=== PATIENT | male | born 1950 | race Caucasian/White ===

== ENCOUNTER 2021-07-06 08:09 | Outpatient (CLI) | payer MEDICARE, MEDICAID, SELFPAY ==
--- NOTE | 2021-07-06 08:27 | ECG_ITS ---
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 Interpretive Statements NAME OF STUDY: LEXISCAN SESTAMIBI STRESS TEST INDICATION: [Chest Pain, ] Procedure: At the baseline, the blood pressure was 129/75 mmHg with a heart rate of 65 bpm. The electrocardiogram showed normal sinus rhythm, normal axis with T wave inversions in leads V3 through V5 The Lexiscan was infused over a period of 20 seconds. A total of 0.4 mg of Lexiscan was infused. The stress phase was continued for a total of 5 minutes. Heart rate was at the end of stress phase was 75 bpm and a blood pressure of 85/59 mmHg. The EKG at the peak infusion revealed since normal sinus rhythm with no significant ST-T wave changes. Sestamibi was injected 20 seconds after the Lexiscan infusion. Blood pressure at the end of recovery phase was 118/62 mmHg with a heart rate of 67 bpm. Conclusion: 1. Normal EKG response to Lexiscan infusion 2. No Lexiscan induced chest pain or cardiac arrhythmia. 3. Hypertensive blood pressure response and normal heart rate response. 4. Sestamibi/sestamibi perfusion scan pending; see separate report. Electronically Signed On 08-03-2021 10:18:47 CAP MACHINE OPERATOR by Aneudy Goss M.D. [id number]
--- NOTE | 2021-07-06 08:28 | NMCV_ITS ---
NM yunier perf SPECT r/s* [id number] Rikki Gross Age: 70 Gender: M : 1950 Exam Date: 07/06/2021 09:34 Ordering Phys: Sam Jacques MD ([email or web address]) Technologist: SHAHRZAD Sykes Exam Location: [facility] Indications: CHEST PAIN STRESS TEST Please see separate stress test report in [facility] for full findings IMAGE PROTOCOL Rest/Stress 1 Lexiscan Day Radiopharmaceutical Dose (mCi) Administration Site Administered by Rest: Tc-99m 10.9 IV SHAHRZAD Adler Sestamibi Stress:Tc-99m 32.7 IV SHAHRZAD Adler Sestamibi Rest: 06-Jul-2021 60 Discovery 630 Stress: 06-Jul-2021 30 Discovery 630 0.4mg Lexiscan. Images obtained in supine and prone position. SPECT RESULTS Technical Quality: Excellent Raw Data Analysis: Normal Image Corrections: No attenuation or motion correction applied Summed Stress Score: 0 Summed Rest Score: 0 Summed Difference Score: 0 PERFUSION FINDINGS SPECT images demonstrate homogeneous tracer distribution throughout the myocardium. FUNCTIONAL RESULTS (calculated via Gated SPECT) Stress Image LV EF (%): 65 Stress EDV (mL):103 TID: 1 Stress ESV (mL):36 FUNCTIONAL FINDINGS: There is normal left ventricular systolic function. IMPRESSIONS 1. Normal myocardial perfusion imaging with no evidence of ischemia 2. LV systolic function is normal Aneudy Goss MD (Electronically Signed) Final Date: 07 July 2021 16:34 S
[2021-07-06 08:55] VITALS: BMI 29.8
[2021-07-06] MEDS: regadenoson 0.4 Mg/5 ml Syringe IVP (10:06)
[2021-07-06 10:24] VITALS: BP 118/62; PULSE 65
== END 2021-07-06 08:10 | disposition home or self-care (01) ==
LOC: RAD 08:14 → CDL 08:51
PROVIDERS: PCP Family Medicine; Visit Provider Internal Medicine Cardiovascular Disease
DX: R07.9 Chest pain, unspecified (principal)
CPT/HCPCS: 78452; 93017; A9500; J2785

== ENCOUNTER → 2021-10-14 11:50 | Outpatient (BNVA) | payer MEDICARE, MEDICAID, SELFPAY | PROVIDERS: PCP Family Medicine; Visit Provider Family Medicine | DX: J44.9 Chronic obstructive pulmonary disease, unspecified (principal); I10 Essential (primary) hypertension; K21.9 Gastro-esophageal reflux disease without esophagitis; M54.16 Radiculopathy, lumbar region; I25.118 Atherosclerotic heart disease of native coronary artery with other forms of angina pectoris; E78.49 Other hyperlipidemia; M15.9 Polyosteoarthritis, unspecified; F41.1 Generalized anxiety disorder | CPT/HCPCS: 80053; 80061; 85025 ==

== ENCOUNTER → 2021-12-23 13:03 | Outpatient (BNVA) | payer MEDICARE, MEDICAID, SELFPAY | PROVIDERS: PCP Family Medicine; Visit Provider Internal Medicine Pulmonary Disease | DX: J41.0 Simple chronic bronchitis (principal); Z87.891 Personal history of nicotine dependence; I10 Essential (primary) hypertension; K21.9 Gastro-esophageal reflux disease without esophagitis; E78.5 Hyperlipidemia, unspecified | CPT/HCPCS: 99214 ==

== ENCOUNTER → 2021-12-24 08:03 | Outpatient (BNVA) | payer MEDICARE, MEDICAID, SELFPAY | PROVIDERS: PCP Family Medicine; Visit Provider Internal Medicine Pulmonary Disease | DX: Z20.822 Contact with and (suspected) exposure to COVID-19 (principal) | CPT/HCPCS: 87635 ==

== ENCOUNTER 2021-12-29 07:57 | Outpatient (CLI) | payer MEDICARE, MEDICAID, SELFPAY ==
--- NOTE | 2021-12-29 15:04 | PFTS_ITS ---
Date of Study:12/29/21 Date of Dictation: MECHANICS: Forced vital capacity (FVC) is reduced. Forced expiratory volume in one second (FEV1) is reduced. FEV1/FVC is reduced. FLOW VOLUME LOOP: Reduced lateral lung volumes with significant scooping. LUNG VOLUMES: Total lung capacity (TLC) is normal. Residual volume (RV) is increased. DIFFUSING CAPACITY FOR CARBON MONOXIDE: Normal. INTERPRETATION: The postbronchodilator spirometry is consistent with moderate airflow obstruction. There is no significant postbronchodilator response. The lung volumes are consistent with air trapping. Gas exchange (DLCO) is normal. MTDD
== END 2021-12-29 07:58 | disposition home or self-care (01) ==
LOC: RT 08:01
PROVIDERS: PCP Family Medicine; Visit Provider Internal Medicine Pulmonary Disease
DX: J41.0 Simple chronic bronchitis (principal)
CPT/HCPCS: 94060; 94618; 94726; 94729; J7611

== ENCOUNTER 2022-02-09 13:30 | Outpatient (CLI) | payer MEDICARE, MEDICAID, SELFPAY ==
--- NOTE | 2022-02-09 13:48 | CT_ITS ---
WS: [id number] LDCT LUNG CANCER SCREENING HISTORY: lung screening TECHNIQUE: Axial imaging performed from the apices to 1 cm below the costophrenic angles. Coronal and sagittal reformats are submitted with axial MIP series. All CT scans at [facility] use at least one of these dose optimization techniques: automated exposure control; mA and/or kV adjustment per patient size (includes targeted exams where dose is matched to clinical indication); or iterativ e reconstruction. DLP: 81.88 mGy.cm DIvol: Mean CTDIvol: 1.60 (mGy) COMPARISON: None available. Diagnostic quality: Satisfactory Lung Nodules: Hyperexpansion with no pulmonary nodule or mass. No endobronchial lesions. Lungs: Subsegmental area of atelectasis along the RIGHT major fissure within the middle lobe and mild bronchiectasis. Additional subsegmental atelectasis in the lingula. No pneumonia. Heart: Normal size heart. No pericardial effusion. Heavy calcification versus stent in the LEFT anter ior descending coronary artery. Additional calcifications in the circumflex and RIGHT coronary artery . Other findings: Normal size pulmonary artery. Normal size aorta. No adenopathy. No adrenal mass. Mild diffuse thoracic spondylosis. Sclerotic lesion in the posterior LEFT 10th rib is probably a bone isl and. No destructive bone lesion. CT/CT lung screening [id number] IMPRESSION: LUNG-RADS: 2-Benign Appearance or Behavior FOLLOW UP: 12 Month: Continue annual screening with LDCT OTHER FINDINGS (S MODIFIER): None. Subsegmental atelectasis RIGHT middle lobe and lingula.
== END 2022-02-09 13:31 | disposition home or self-care (01) ==
LOC: RAD 13:33
PROVIDERS: PCP Family Medicine; Visit Provider Internal Medicine Pulmonary Disease
DX: Z12.2 Encounter for screening for malignant neoplasm of respiratory organs (principal); J41.0 Simple chronic bronchitis; R06.02 Shortness of breath; T78.40XA Allergy, unspecified, initial encounter; Z87.891 Personal history of nicotine dependence; E78.5 Hyperlipidemia, unspecified; I10 Essential (primary) hypertension; K21.9 Gastro-esophageal reflux disease without esophagitis
CPT/HCPCS: 71271; 82785; 86003; 99214

== ENCOUNTER → 2022-02-15 14:31 | Outpatient (BNVA) | payer MEDICARE, MEDICAID, SELFPAY | PROVIDERS: PCP Family Medicine; Visit Provider Internal Medicine | DX: I25.118 Atherosclerotic heart disease of native coronary artery with other forms of angina pectoris (principal); I10 Essential (primary) hypertension; E78.49 Other hyperlipidemia; Z87.891 Personal history of nicotine dependence | CPT/HCPCS: 99214 ==

== ENCOUNTER 2022-10-19 16:33 | Inpatient (IN) | payer MEDICARE, MEDICAID, SELFPAY ==
[2022-10-19] VITALS (84 sets, daily range): BP systolic 90–162; BP diastolic 57–113; PULSE 0–108; RESP 15–33; TEMP 35.8; O2SAT 94–100
--- NOTE | 2022-10-19 16:36 | ED_ITS ---
HPI - Altered Mental Status General: Chief Complaint: Overdose Stated Complaint: INTUBATED Time Seen by Provider: 10/19/22 16:36 Limitations: altered mental status and other (Intubated) History of Present Illness: Mr. Gross is a 72-year-old gentleman with, per chart review COPD, hypertension, hyperlipidemia, CAD presenting to the emergency department for altered mental status with reported intentional overdose on benzodiazepine. He was found by EMS with altered mental status sitting in a truck, estimated initial GCS of 12. Apparently he admitted to taking an unknown amount of clonazepam and it is unclear how many or what strength as well as any coingestants. He did admit to doing this intentionally as a suicide attempt. Subsequently his mental status declined and he began to vomit at which point EMS intubated the patient and brought him here. Patient intubated with 150 mg ketamine, 5 mg Versed, 10 mg reji and 100 mg succinylcholine. Review of Systems General: Reports: ROS unobtainable due to endotracheal tube and ROS unobtainable due to mental status [facility] PFSH: Medical History CAD (coronary artery disease) COPD (chronic obstructive pulmonary disease) Essential hypertension GERD (gastroesophageal reflux disease) Hyperlipidemia Osteoarthritis Surgical History S/P cataract extraction S/P coronary artery stent placement S/P inguinal hernia repair Family History Other Unknown family medical history Social History Smoking and tobacco status: former smoker Quit status (tobacco): has quit using tobacco Year quit tobacco: 2006 Former quit date comment: 2ppd x 46 years, started age 10 Second hand smoke exposure: Yes Alcohol intake: never Physical Exam Const: GENERAL APPEARANCE: well developed and patient mechanically ventilated HENMT: COMMON NORMALS: normocephalic and atraumatic HEAD & SCALP: normocephalic and atraumatic Eye: COMMON NORMALS: conjunctivae normal CONJUNCTIVA: Yes conjunctivae normal SCLERA: sclerae normal Neck/C-Spine: COMMON NORMALS: supple GENERAL: Yes trachea midline Resp: AUSCULTATION: breath sounds absent on th left OTHER: Initially ET tube 28 at the teeth and left sided breath sounds absent. I suspect right mainstem intubation and ET tube was retracted. Repeat lung sounds present bilaterally with mild coarseness on the left. Chest x-ray to confirm satisfactory positioning of ET tube. Cardio: COMMON NORMALS: regular rate and regular rhythm RATE: regular rate RHYTHM: regular rhythm GI: COMMON NORMALS: Soft to palpation PALPATION: Yes Soft to palpation and No Tenderness to palpation present (GI) PERCUSSION: normal to percussion Extremity: GENERAL: Yes normal exam except as noted and No edema Neuro: COMMON NORMALS: moves all extremities SENSORIUM/ORIENTATION: Yes somnolent OTHER: Patient appears mildly light on sedation and does move all extremities upper and lower. He does not follow commands. Procedures Central Line Placement Right IJ: Time Out Performed: Yes Patient Placed on Monitor/Pulse Ox: Yes MD Prep: mask, gown and gloves Central Line Prep: Povidone-Iodine 1%, Chlorhexidine scrub and sterile dr stephanie applied Ultrasound Used for Placement: Yes Central Line Lumen Inserted: triple Post Procedure: sutured in place, good blood return, all ports aspirated, flushed, capped and sterile dressing applied Post Procedure X-Ray: tip of catheter in good position and no pneumothorax seen Patient Tolerated Procedure: well Complications: none Course Vital Signs: Vital signs: Vital Signs Temperature 98.6 F 10/28/22 20:50 Pulse Rate 69 10/28/22 20:50 Respiratory Rate 17 10/28/22 20:50 Blood Pressure 105/61 10/28/22 20:50 Pulse Oximetry 94 10/28/22 20:50 Oxygen Delivery Me thod 10/28/22 20:50 Oxygen Flow Rate 2 10/25/22 08:00 Fraction of Inspir ed Oxygen 30 10/20/22 18:00 MDM - Altered Mental Status Medical Decision Making 72-year-old male presenting to the emergency department for reported intentional drug overdose. Patient intubated in the field by EMS. EMS reports uncomplicated atraumatic intubation. On initial evaluation of the patient vitals are satisfactory, ET tube is 28 at the teeth and left lung sounds absent. ET tube retracted until breath sounds present bilaterally and resecured. This was confirmed at bedside by x-ray which I personally interpreted at is satisfactory ET tube placement. ABG personally interpreted with repeat planned, RT to titrate down FiO2. I personally interpreted laboratory studies. There is mild leukocytosis which may be reactive, normal hemoglobin and platelet count. Metabolic panel without acute derangement requiring intervention, glucose is adequate. Urinalysis with 3+ blood however only 0-4 cells on microscopy, this may be secondary to Mendez catheter insertion. Toxic ingestions and urine drug screen are negative as tested which does raise additional concern for unknown ingestant. Repeat x-ray also interpreted with satisfactory positioning of NG tube. CT head negative for obvious intracranial hemorrhage or mass as interpreted by me. Confirmed by radiology. During positioning patient did become bradycardic, blood pressure adequate as were other vital sign metrics. I suspect that this is due to increased vagal tone and patient had improvement with atropine. Plan to continue to monitor. X-ray interpreted as satisfactory CVC placement and confirmed by radiology read with no pneumothorax. Case was discussed by RN with poison control based on reported ingestant. Family not in the waiting room at time of attempted discussion. Patient requires inpatient management for intentional drug overdose, acute respiratory failure, altered mental status. Discussed with hospitalist service who was agreeable to admit patient to the ICU. A broad range of differentials were considered in this case and ED evaluation tailored to likely and clinically significant etiologies as appropriate. Medical complexity is increased by patient's significant pertinent comorbidities including CAD, COPD. I reviewed prior cardiology and pulmonology as well as family practice most recent visit notes. I reviewed greater than 3 recent laboratory study results and the prior CT lung results and myocardial perfusion scan results. Medical Records I reviewed the patient's medical records. Lab Data I reviewed the patient's lab results. 10/19/22 17:30 10/19/22 17:[address] 10/19/22 16:38 IMPRESSION: 1. No acute intracranial abnormality. 2. 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 Chest X-Ray 10/21/22 09:53 IMPRESSION: 1. Mild cardiac enlargement. No acute process noted. 2. Right-sided IJ catheter in satisfactory position. 3. No acute infiltrate or other significant finding. Laboratory Results WBC 13.9 10^3/uL (4.0-10.0) H 10/19/22 17:30 RBC 4.52 10^6/uL (4.1-5.3) 10/19/22 17:30 Hgb 13.0 g/dL (11.7-16.6) 10/19/22 17:30 Hct 42.2 % (42.0-52.0) 10/19/22 17:30 MCV 93.4 fl (80-94) 10/19/22 17:30 MCH 28.8 pg (28.0-34.0) 10/19/22 17:30 MCHC 30.8 g/dL (30.0-36.0) 10/19/22 17: RDW 14.4 % (12.1-15.1) 10/19/22 17:30 Plt Count 227 10^3/cmm (130-400) 10/19/22 17:30 MPV 11.4 fL (7.4-10.4) H 10/19/22 17:30 Neut % (Auto) 89.1 % 10/19/22 17:30 Lymph % (Auto) 4.2 % 10/19/22 17:30 [place] % (Auto) 5.3 % 10/19/22 17:30 Eos % (Auto) 0.6 % 10/19/22 17:30 Baso % (Auto) 0.3 % 10/19/22 17:30 Neut # (Auto) 12.38 10^3/uL (1.8-7.7) H 10/19/22 17:30 Lymph # (Auto) 0.6 10^3/uL (0.8-4.8) L 10/19/22 17:30 [place] # (Auto) 0.7 10^3/uL (0.2-0.9) 10/19/22 17:30 Eos # (Auto) 0.1 10^3/uL (0.0-0.8) 10/19/22 17:30 Baso # (Auto) 0.0 10^3/uL (0.0-0.1) 10/19/22 17: Nucleated RBC % (auto) 0 % 10/19/22 17: Nucleated RBCs # 0.0 /100WBC 10/19/22 17:30 Specimen Type Arterial 10/19/22 20:00 Sample Site Brachial, left 10/19/22 20:00 ABG pH 7.37 (7.35-7.45) 10/19/22 20:00 ABG pCO2 37.6 mmHg (35-45) 10/19/22 20:00 ABG pO2 110.0 mmHg (80.0-100.0) H 10/19/22 20:00 ABG HCO3 21.5 mmol/L (22-26) L 10/19/22 20:00 ABG Base Excess -3.5 mmol/L (-2.0-2.0) L 10/19/22 20:00 [place] Test N/a 10/19/22 20:00 Hematocrit 37.4 % (42-52) L 10/19/22 20:00 O2 Delivery Device Vent 10/19/22 20:00 FiO2 100.0 % 10/19/22 17:39 Tidal Volume 0.45 10/19/22 17:39 PEEP 5.0 cmH20 10/19/22 17:[address] Supervisor ID Ivis 10/19/22 20:00 Sodium 141 mmol/L (136-145) 10/19/22 17:30 Potassium 3.9 mmol/L (3.5-5.1) 10/19/22 17:30 Chloride 107 mmol/L (98-107) 10/19/22 17:30 Carbon Dioxide 25 mmol/L (22-29) 10/19/22 17:30 Anion Gap 12.9 (5-19) 10/19/22 17:30 BUN 24 mg/dL (8-23) H 10/19/22 17:30 Creatinine 1.1 mg/dL (0.7-1.2) 10/19/22 17:30 GFR Calculation 66.2 mL/min (90-130) L 10/19/22 17:30 Glucose 108 mg/dL (65-115) 10/19/22 17:30 POC Glucose 119 mg/dL (70-110) H 10/19/22 18:50 Calculated Osmolality 297 mOsm/kg (285-295) H 10/19/22 17:30 Calcium 9.0 mg/dL (8.5-10.5) 10/19/22 17:30 Magnesium 2.0 mg/dL (1.7-2.3) 10/19/22 17:30 Total Bilirubin 0.4 mg/dL (0.15-1.2) 10/19/22 17:30 AST 21 U/L (0-40) 10/19/22 17:30 ALT 28 U/L (0-41) 10/19/22 17:30 Alkaline Phosphatase 51 U/L (40-130) 10/19/22 17:30 Troponin T Baseline 12 ng/L (0-15) 10/19/22 17:30 Troponin T 120 Minute 11.16 ng/L (0-15) 10/19/22 19:25 Delta Troponin T -0.84 ABS# (0-10) L 10/19/22 19:25 NT-Pro-B Natriuret Pep 272 pg/mL (0-125) H 10/19/22 17:30 Total Protein 6.6 g/dL (6.6-8.7) 10/19/22 17:30 Albumin 3.9 g/dL (3.5-5.2) 10/19/22 17:30 Globulin 2.7 g/dL (1.3-4.6) 10/19/22 17:30 TSH 0.88 uIU/mL (0.27-4.20) 10/19/22 17:30 Urine Color Yellow (Yellow) 10/19/22 18:16 Urine Appearance Clear (CLEAR) 10/19/22 18:16 Urine pH 6 (5-7) 10/19/22 18:16 Ur Specific [place] 1.020 (1.005-1.030) 10/19/22 18:16 Urine Protein Neg (Negative) 10/19/22 18:16 Urine Glucose (UA) Norm (Normal) 10/19/22 18:16 Urine Ketones Negative (Negative) 10/19/22 18:16 Urine Blood 3+ (Negative) H 10/19/22 18:16 Urine Nitrate Negative (Negative) 10/19/22 18:16 Urine Bilirubin Neg (Negative) 10/19/22 18:16 Urine Urobilinogen Norm mg/dL (Negative) 10/19/22 18:16 Ur Leukocyte Esterase Negative (Negative) 10/19/22 18:16 Urine RBC 0-4 /hpf (0-2) H 10/19/22 18:16 Urine WBC 0-4 /hpf (0-5) H 10/19/22 18:16 Ur Squamous Epith Cells 0-4 /hpf (0-5) H 10/19/22 18:16 Amorphous Sediment Not Reportable 10/19/22 18:16 Urine Bacteria Trace /hpf (NONE) 10/19/22 18:16 Urine Mucus Trace /hpf 10/19/22 18:16 Salicylates < 0.3 mg/dL (3-10) L 10/19/22 17:30 Urine Opiates Screen Negative ng/mL (Negative) 10/19/22 18:16 Acetaminophen < 5.0 ug/mL (10-30) L 10/19/22 17:30 Ur Barbiturates Screen Negative ng/mL (Negative) 10/19/22 18:16 Ur Phencyclidine Scrn Negative ng/mL (Negative) 10/19/22 18:16 Ur Amphetamines Screen Negative ng/mL (Negative) 10/19/22 18:16 U Benzodiazepines Scrn Negative ng/mL (Negative) 10/19/22 18:16 Urine Cocaine Screen Negative ng/mL (Negative) 10/19/22 18:16 U Marijuana (THC) Screen Negative ng/mL (Negative) 10/19/22 18:16 Ethyl Alcohol < 10 mg/dL (0-10) 10/19/22 17:30 Critical Care Time Critical Care Time: Critical Care Time: Yes Total Critical Care Time: 85 Attestation: Due to a high probability of clinically significant, possibly life threatening deterioration, the patient required my highest level of attention and preparedness to intervene emergently and I personally spent this critical care time directly and personally managing the patient. This critical care time included obtaining a history; examining the patient; pulse oximetry; ordering and review of laboratory and imaging studies; arranging urgent treatment with development of a management plan; evaluation of patient's response to treatment; frequent reassessment; and, discussions with other providers as applicable. It was exclusive of separately billable procedures. Primary systems involved are CHILD ADOLESCENT PSYCHIATRIST, respiratory, toxicology. Discharge Plan Discharge Patient Disposition: Admitted As Inpatient Admit Provider: Cassie Huynh Clinical Impression: Suicide attempt by benzodiazepine overdose, Acute alteration in mental status, Acute respiratory failure Condition: Stable Coding Level of Care Code ED Embryology Teacher for Alejag Fwd Exam Comprehensive
--- NOTE | 2022-10-19 16:36 | XRR_ITS ---
PROCEDURE INFORMATION: Exam: XR Chest Exam date and time: 10/19/2022 4:43 PM Age: 72 years old Clinical indication: Device placement; Ett placement (vent status); Additional info: Intubated TECHNIQUE: Imaging protocol: Radiologic exam of the chest. Views: 1 view. COMPARISON: CT lung screening [id number] 02/09/2022 1:52 PM FINDINGS: Tubes, catheters and devices: Intubation with tip 5.3 cm above the lisa. Lungs: Patchy airspace opacities in the left lung base. Mild discoid atelectasis in the right lung base. Pleural spaces: Unremarkable. No pleural effusion. No pneumothorax. Heart/Mediastinum: Unremarkable. No cardiomegaly. Diaphragm: Chronic elevation of the left diaphragm. Bones/joints: Unremarkable. XR/XR chest 1V portable [id number] IMPRESSION: Atelectasis versus pneumonia in the left lung base.
--- NOTE | 2022-10-19 16:38 | CTR_ITS ---
PROCEDURE INFORMATION: Exam: CT Head Without Contrast Exam date and time: 10/19/2022 6:00 PM Age: 72 years old Clinical indication: Coma or unconsciousness; Additional info: AMS, found down at home. Unresponsive TECHNIQUE: Imaging protocol: Computed tomography of the head without contrast. Radiation optimization: All CT scans at this facility use at least one of these dose optimization techniques: automated exposure control; mA and/or kV adjustment per patient size (includes targeted exams where dose is matched to clinical indication); or iterative reconstruction. Other protocol: This patient has received [address] and 0 known cardiac nuclear medicine studies in the 12 months prior to the current study. COMPARISON: No relevant prior studies available. RADIATION DOSE METRICS: Total DLP (mGy-cm): 1152.08 FINDINGS: Brain: Moderate diffuse cortical volume loss. Multiple chronic lacunar infarcts in the right lentiform nucleus, galaviz radiata, and right caudate body. Mild hypodensities in supratentorial periventricular and subcortical white matter, consistent with microangiopathy. No intracranial hemorrhage. Cerebral ventricles: No ventriculomegaly. Paranasal sinuses: Small polyp or retention cyst in the right sphenoid sinus. The other sinuses are clear. Mastoid air cells: Visualized mastoid air cells are well aerated. Orbital cavities: Prior cataract surgery. Bones/joints: Unremarkable. No acute fracture. Soft tissues: Unremarkable. Vasculature: No hyperdense artery. CT/CT head wo con* [id number] IMPRESSION: 1. No acute intracranial abnormality. 2. 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
--- NOTE | 2022-10-19 16:43 | PC.NURSE ---
This nurse spoke with poison control.
--- NOTE | 2022-10-19 16:45 | ECG_ITS ---
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 Measurements Intervals [place] Rate: 62 P: 38 [place]: 132 QRS: 34 QRSD: 113 T: 46 QT: 399 QTc: 408 Interpretive Statements SINUS RHYTHM MODERATE INTRAVENTRICULAR CONDUCTION DELAY [110+ ms QRS DURATION] Compared to ECG 10/14/2016 06:32:09 Intraventricular conduction delay now present T-wave abnormality no longer present Possible ischemia no longer present Electronically Signed On 10-20-2022 9:27:39 RN PRODUCTION by Aneudy Goss M.D. [id number]
[2022-10-19] MEDS: propofol 1,000 MG/100 ML INJ 12 MG IV (16:50)
--- NOTE | 2022-10-19 17:19 | XRR_ITS ---
PROCEDURE INFORMATION: Exam: XR Chest Exam date and time: 10/19/2022 5:34 PM Age: 72 years old Clinical indication: Device placement; Ng tube; Patient HX: Ng placement TECHNIQUE: Imaging protocol: Radiologic exam of the chest. Views: 1 view. COMPARISON: CR XR chest 1V portable [id number] 10/19/2022 4:43 PM FINDINGS: Tubes, catheters and devices: Intubation with tip approximately 5.3 cm above the lisa. Gastric tube tip in the mid stomach. Lungs: Stable patchy airspace opacities in the left lung base. Improved mild atelectasis in the right lung base. Pleural spaces: Unremarkable. No pleural effusion. No pneumothorax. Heart/Mediastinum: Unremarkable. No cardiomegaly. Diaphragm: Stable elevation of the left diaphragm. Bones/joints: Unremarkable. XR/XR chest 1V portable [id number] IMPRESSION: 1. Gastric tube tip in the mid stomach. 2. Stable atelectasis or pneumonia in the left lung base.
[2022-10-19] MEDS: sodium chloride 0.9% 1,000 ML 999 ML IV (17:24)
[2022-10-19 17:40] LABS: Basophils % 0.3 %; Eosinophils # 0.1 10^3/uL (0.0-0.8); Eosinophils % 0.6 %; Hematocrit 42.2 % (42.0-52.0); Lymphocytes # 0.6 10^3/uL (0.8-4.8); Lymphocytes % 4.2 %; Mean Corpuscular HGB Conc 30.8 g/dL (30.0-36.0); Mean Corpuscular Hemoglobin 28.8 pg (28.0-34.0); Mean Corpuscular Volume 93.4 fl (80-94); Mean Platelet Volume 11.4 fL (7.4-10.4); Monocytes # 0.7 10^3/uL (0.2-0.9); Monocytes % 5.3 %; Neutrophils # 12.38 10^3/uL (1.8-7.7); Neutrophils % 89.1 %; Nucleated Red Blood Cells % 0 %; Platelet Count 227 10^3/cmm (130-400); Red Blood Count 4.52 10^6/uL (4.1-5.3); Red Cell Distribution Width 14.4 % (12.1-15.1); White Blood Count 13.9 10^3/uL (4.0-10.0)
[2022-10-19 17:51] LABS: ABG PCO2 41.3 mmHg (35-45); ABG PH Result 7.34 (7.35-7.45); Arterial Blood Gas Hematocrit 37.7 % (42-52); Base Excess ABG -3.7 mmol/L (-2.0-2.0); Blood Gas Allen Test Pos; Blood Gas Sample Type Arterial
[2022-10-19 17:52] LABS: Blood Gas Operator Identificat MONRO; Blood Gas Sample Site Radial, left; Blood Gas Tidal Volume 0.45; Oxygen Device VENT
[2022-10-19 18:12] LABS: Troponin(5th) Baseline 12 ng/L (0-15)
[2022-10-19 18:22] LABS: Acetaminophen < 5.0 ug/mL (10-30); Alanine Aminotransferase 28 U/L (0-41); Albumin Level 3.9 g/dL (3.5-5.2); Alcohol Level < 10 mg/dL (0-10); Alkaline Phosphatase 51 U/L (40-130); Aspartate Amino Transferase 21 U/L (0-40); Blood Urea Nitrogen 24 mg/dL (8-23); Carbon Dioxide 25 mmol/L (22-29); Chloride 107 mmol/L (98-107); Globulin 2.7 g/dL (1.3-4.6); Glomerular Filtration Rate 66.2 mL/min (90-130); Glucose 108 mg/dL (65-115); NT Pro B Type Natriuretic Pept 272 pg/mL (0-125); Osmolality Calculated 297 mOsm/kg (285-295); Salicylate < 0.3 mg/dL (3-10); Sodium 141 mmol/L (136-145); Thyroid Stimulating Hormone 0.88 uIU/mL (0.27-4.20); Total Bilirubin 0.4 mg/dL (0.15-1.2); Total Protein 6.6 g/dL (6.6-8.7)
--- NOTE | 2022-10-19 18:22 | PC.NURSE ---
One syringe of atropine sulfate 1mg/10mL was pulled by KIRK and witness by this nurse. Atropine admin by KIRK.
[2022-10-19] MEDS: atropine 0.1 mg/mL Syr 10 mL 1 MG (18:24)
[2022-10-19 18:31] LABS: Anion Gap 12.9 (5-19); Potassium 3.9 mmol/L (3.5-5.1)
[2022-10-19 18:36] LABS: Add Urine Microscopic? YES; Bilirubin Urine Neg (Negative); Blood Urine 3+ (Negative); Glucose Urine UA Norm (Normal); Ketones Urine Negative (Negative); Leukocyte Esterase Urine Negative (Negative); Nitrate Urine Negative (Negative); Protein Urine Neg (Negative); Urine Appearance Clear (CLEAR); Urine Color Yellow (Yellow); Urobilinogen Urine Norm (Negative); pH Urine 6 (5-7)
--- NOTE | 2022-10-19 18:38 | ECG_ITS ---
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 Measurements Intervals [place] Rate: 69 P: 35 [place]: 133 QRS: 28 QRSD: 94 T: 29 QT: 387 QTc: 415 Interpretive Statements SINUS RHYTHM NONSPECIFIC T-WAVE ABNORMALITY Compared to ECG 10/19/2022 16:45:59 T-wave abnormality now present Intraventricular conduction delay no longer present Electronically Signed On 10-20-2022 9:30:52 MATERIAL CHASER by Aneudy Goss M.D. [id number]
[2022-10-19 18:42] LABS: Bacteria Urine TRACE /hpf; Mucus Urine TRACE /hpf; RBC Urine 0-4 /hpf (0-2); Squamous Epithelial Cell Urine 0-4 /hpf (0-5); WBC Urine 0-4 /hpf (0-5)
--- NOTE | 2022-10-19 18:42 | XRR_ITS ---
PROCEDURE INFORMATION: Exam: XR Chest Exam date and time: 10/19/2022 6:53 PM Age: 72 years old Clinical indication: Device placement; Other: Central line placement; Prior surgery TECHNIQUE: Imaging protocol: Radiologic exam of the chest. Views: 1 view. COMPARISON: CR (CHEST, ) 10/19/2022 5:34 PM FINDINGS: Tubes, catheters and devices: Right IJ central line with tip over the distal SVC. Intubation with tip 5.5 cm above the lisa. Gastric tube placement with tip in the inferior mid stomach. Lungs: Stable airspace opacities in the left lung base. Pleural spaces: Unremarkable. No pleural effusion. No pneumothorax. Heart/Mediastinum: Unremarkable. No cardiomegaly. Diaphragm: Elevation of the left diaphragm is unchanged. Bones/joints: Unremarkable. XR/XR chest 1V portable [id number] IMPRESSION: 1. Central line placement without pneumothorax. 2. Otherwise stable chest.
--- NOTE | 2022-10-19 18:42 | PC.NURSE ---
Chelsea from poison control called for update
[2022-10-19 18:43] LABS: Add Urine Culture? No
[2022-10-19] MEDS: fentaNYL 50 mcg/mL INJ 2mL IVP (18:45)
[2022-10-19] MEDS: atropine 0.1 mg/mL Syr 10 mL 1 MG IVP (18:46)
[2022-10-19 18:48] LABS: Amphetamines Screen Urine Negative (Negative); Barbiturates Screen Urine Negative (Negative); Benzodiazepines Screen Urine Negative (Negative); Cocaine Screen Urine Negative (Negative); Opiate Screen Urine Negative (Negative); PCP Screen Urine Negative (Negative); THC Screen Urine Negative (Negative)
[2022-10-19 18:53] LABS: Glucose Point of Care 119 mg/dL (70-110)
[2022-10-19 19:52] LABS: Troponin 5 2HR 11.16 ng/L (0-15)
[2022-10-19 19:53] LABS: Troponin 5 2HR Delta -0.84 ABS# (0-10)
[2022-10-19 20:14] LABS: ABG PCO2 37.6 mmHg (35-45); ABG PH Result 7.37 (7.35-7.45); Arterial Blood Gas Hematocrit 37.4 % (42-52); Base Excess ABG -3.5 mmol/L (-2.0-2.0); Blood Gas Sample Site Brachial, left; Blood Gas Sample Type Arterial; HCO3 ABG 21.5 mmol/L (22-26); Oxygen Device VENT
--- NOTE | 2022-10-19 20:43 | XRR_ITS ---
PROCEDURE INFORMATION: Exam: XR Chest Exam date and time: 10/19/2022 9:43 PM Age: 72 years old Clinical indication: Device placement; Patient HX: Et, og, central line placement after transfer to icu; Additional info: Et tube confirmation and og placement confirmation TECHNIQUE: Imaging protocol: Radiologic exam of the chest. Views: 1 view. COMPARISON: CR (CHEST, ) 10/19/2022 6:53 PM FINDINGS: Tubes, catheters and devices: Intubation with tip 2.9 cm above the lisa. A gastric tube extends into the stomach, tip beyond the field of view. Lungs: Stable airspace opacities in the left lung base. Minimal atelectasis in the right lung base. Pleural spaces: Unremarkable. No pleural effusion. No pneumothorax. Heart/Mediastinum: Unremarkable. No cardiomegaly. Diaphragm: Stable elevation of the left diaphragm. Bones/joints: Unremarkable. XR/XR chest 1V portable [id number] IMPRESSION: 1. Intubation with tip 2.9 cm above the lisa. 2. Otherwise stable chest.
[2022-10-19 20:47] LABS: Glucose Point of Care 90 mg/dL (70-110)
--- NOTE | 2022-10-19 22:38 | ECG_ITS ---
[facility] Test Date: 2022-10-19 Pat Name: Rikki Gross Department: Room: [facility] Gender: Male Ophthalmic Surgical Assistant: : 1950 Requested By: Elias Sen Order Number: [id number] Leighton MD: Aneudy Goss M.D. Measurements Intervals [place] Rate: 67 P: 39 MD: 142 QRS: 37 QRSD: 93 T: 29 QT: 393 QTc: 415 Interpretive Statements SINUS RHYTHM NONSPECIFIC T-WAVE ABNORMALITY Compared to ECG 10/19/2022 19:08:25 No significant changes Electronically Signed On 10-20-2022 9:30:21 [employer] COMPENSATION ADMINISTRATOR by Aneudy Goss M.D. [id number]
[2022-10-19] MEDS: piperacillin-tazobactam 3.375 GM in sodium chloride 0.9% (plus) 50 ML IV (23:06)
[2022-10-19] MEDS: enoxaparin 40 mg/0.4 mL Syringe SUBCUT (23:06)
[2022-10-19] MEDS: dextrose 5%-sod chloride 0.9% 1,000 ML 75 ML IV (23:06)
--- NOTE | 2022-10-19 23:13 | PM.HP ---
Providers/Chief Complaint Admitting Physician: Cassie Huynh MD Chief Complaint: INTUBATED History of Present Illness History is obtained by reviewing chart and talking to ER physician. Patient is currently intubated sedated therefore unable to participate. Rikki Gross is a 72 year old male with history of COPD, hyperlipidemia, CAD who was brought by the EMS today after reportedly being found in his truck reportedly having consumed multiple Klonopin tablets in a suicide attempt. Initial GCS when he was evaluated by EMS was at 12, then during assessment declined with regards to his mentation and started vomiting. Due to concern for airway compromise, he was intubated by EMS and brought into the emergency room. No other details are currently available. Lab abnormalities include mild leukocytosis at 13.9, chest x-ray with a left lower lobe infiltrate, troponin series without any significant delta. Review of Systems General: Reports: ROS unobtainable due to medical condition and ROS unobtainable due to mental status Medications/Allergies Home Medications Medication Instructions Recorded Confirmed Last Taken Type aspirin 81 mg tablet,delayed 81 mg PO DAILY 05/25/21 07/14/22 Unknown History release (Adult Low Dose Aspirin) docusate sodium 100 mg capsule 100 mg PO DAILY 07/30/21 07/14/22 Unknown History vitamin B complex (B 1 tab PO DAILY 07/30/21 07/14/22 Unknown History Complex-Vitamin B12 tablet) albuterol sulfate 90 mcg/actuation 2 puff inhalation Q6H PRN 10/14/21 07/14/22 Unknown Rx aerosol inhaler (ProAir HFA) shortness of breath or wheezing #8.5 grams carvedilol 12.5 mg tablet 12.5 mg PO BID #180 tabs 10/21/21 07/14/22 Unknown Rx diphenhydramine HCl 25 mg tablet 25 mg PO TID PRN 10/21/21 07/14/22 Unknown History (Allergy Relief (diphenhydramine)) ibuprofen 200 mg tablet 200 mg PO Q6H PRN 10/21/21 07/14/22 Unknown History isosorbide mononitrate 30 mg 30 mg PO DAILY #90 tabs 10/21/21 07/14/22 Unknown Rx tablet,extended release 24 hr rosuvastatin 40 mg tablet 40 mg PO DAILY #90 tabs 10/21/21 07/14/22 Unknown Rx valsartan 160 mg tablet 160 mg PO DAILY #90 tabs 10/21/21 07/14/22 Unknown Rx fluticasone 500 mcg-salmeterol 50 1 inh inhalation BID #60 ea 12/23/21 07/14/22 Unknown Rx mcg/dose blistr powdr for inhalation (Advair Diskus) albuterol sulfate 2.5 mg/3 mL 2.5 mg (3 mL) inhalation Q4H PRN 01/13/22 07/14/22 Unknown Rx (0.083 %) solution for nebulization shortness of breath or wheezing #180 mL amoxicillin 875 mg-potassium 1 tab PO Q12H 10 days #20 tabs 01/13/22 07/14/22 Unknown Rx clavulanate 125 mg tablet meloxicam 15 mg tablet 15 mg PO DAILY 90 days #90 tabs 01/13/22 07/14/22 Unknown Rx omeprazole 20 mg tablet,delayed 20 mg PO DAILY 90 days #90 tabs 01/13/22 07/14/22 Unknown Rx release gabapentin 300 mg capsule 300 mg PO TID 30 days #90 caps 01/20/22 07/14/22 Unknown Rx nitroglycerin 0.4 mg sublingual 0.4 mg sublingual Q5M PRN chest 02/02/22 07/14/22 Unknown Rx tablet pain #30 tabs budesonide 160 mcg-glycopyr 9 2 inh inhalation BID #10.7 grams 02/15/22 07/14/22 Unknown Rx mcg-formot 4.8 mcg/actuation HFA inhaler (Breztri Aerosphere) cranberry 400 mg capsule 400 mg PO DAILY 02/15/22 07/14/22 Unknown History montelukast 10 mg tablet 10 mg PO DAILY #30 tabs 02/15/22 07/14/22 Unknown Rx (Singulair) umeclidinium 62.5 mcg/actuation 1 inh inhalation DAILY #30 ea 04/20/22 07/14/22 Unknown Rx blister powder for inhalation (Incruse Ellipta) amlodipine 5 mg tablet 10 mg PO QAM #90 tabs 06/23/22 07/14/22 Unknown Rx ticagrelor 90 mg tablet (Brilinta) 90 mg PO BID #180 tabs 10/18/22 Unknown Rx Allergies Allergy/AdvReac Type Severity Reaction Status Date / Time No Known Allergies Allergy Verified 07/14/22 07:03 PFSH Acute PFSH: Medical History CAD (coronary artery disease) COPD (chronic obstructive pulmonary disease) Essential hypertension GERD (gastroesophageal reflux disease) Hyperlipidemia Osteoarthritis Surgical History S/P cataract extraction S/P coronary artery stent placement S/P inguinal hernia repair Family History Other Unknown family medical history Social History Smoking and tobacco status: former smoker Quit status (tobacco): has quit using tobacco Year quit tobacco: 2006 Former quit date comment: 2ppd x 46 years, started age 10 Second hand smoke exposure: Yes Alcohol intake: never Vitals/I&O/Wt Last Vital Signs Temp 96.4 F L 10/19/22 20:15 Pulse 66 10/19/22 22:30 Resp 16 10/19/22 23:10 BP 92/59 10/19/22 22:30 Pulse Ox 97 10/19/22 23:10 O2 Del Method 10/19/22 20:36 FiO2 30 10/19/22 23:10 10/19/22 10/19/22 10/20/22 14:59 22:59 06:59 Intake Total 1004 / 1004 Balance 1004 / 1004 Weight last 48 hrs Weight 83.971 kg Physical Exam Narrative: General: Intubated sedated HEENT: PERRLA, pupils bilaterally equal and reactive Chest: Normal vesicular breath sounds, no added sounds, equal good air entry bilaterally CVS: S1-S2 regular, no murmurs, no tachycardia, no gallops, no rubs Abdomen: Soft, nontender, no organomegaly, bowel sounds present Neuro: Unable to assess is currently intubated sedated Urinary Catheter Management: Mendez: Cath Placed During This Visit: yes Reason for Continuing Indwelling Catheter: Accurate Measurement of Urinary Output in Critically Ill Patients Urinary Catheter Date of Insertion: 10/19/22 Urinary Catheter Time of Insertion: 17:15 Data 10/19/22 17:30 10/19/22 17:30 Other Labs: Radiology Impressions Head CT 10/19/22 16:38 IMPRESSION: 1. No acute intracranial abnormality. 2. 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 Chest X-Ray 10/19/22 20:43 IMPRESSION: 1. Intubation with tip 2.9 cm above the lisa. 2. Otherwise stable chest. Laboratory Results WBC 13.9 10^3/uL (4.0-10.0) H 10/19/22 17:30 RBC 4.52 10^6/uL (4.1-5.3) 10/19/22 17:30 Hgb 13.0 g/dL (11.7-16.6) 10/19/22 17:30 Hct 42.2 % (42.0-52.0) 10/19/22 17:30 MCV 93.4 fl (80-94) 10/19/22 17:30 MCH 28.8 pg (28.0-34.0) 10/19/22 17:30 MCHC 30.8 g/dL (30.0-36.0) 10/19/22 17:30 RDW 14.4 % (12.1-15.1) 10/19/22 17:30 Plt Count 227 10^3/cmm (130-400) 10/19/22 17:30 MPV 11.4 fL (7.4-10.4) H 10/19/22 17:30 Neut % (Auto) 89.1 % 10/19/22 17:30 Lymph % (Auto) 4.2 % 10/19/22 17:30 [place] % (Auto) 5.3 % 10/19/22 17:30 Eos % (Auto) 0.6 % 10/19/22 17:30 Baso % (Auto) 0.3 % 10/19/22 17:30 Neut # (Auto) 12.38 10^3/uL (1.8-7.7) H 10/19/22 17:30 Lymph # (Auto) 0.6 10^3/uL (0.8-4.8) L 10/19/22 17:30 [place] # (Auto) 0.7 10^3/uL (0.2-0.9) 10/19/22 17:30 Eos # (Auto) 0.1 10^3/uL (0.0-0.8) 10/19/22 17:30 Baso # (Auto) 0.0 10^3/uL (0.0-0.1) 10/19/22 17:30 Nucleated RBC % (auto) 0 % 10/19/22 17:30 Nucleated RBCs # 0.0 /100WBC 10/19/22 17:30 Specimen Type Arterial 10/19/22 20:00 Sample Site Brachial, left 10/19/22 20:00 ABG pH 7.37 (7.35-7.45) 10/19/22 20:00 ABG pCO2 37.6 mmHg (35-45) 10/19/22 20:00 ABG pO2 110.0 mmHg (80.0-100.0) H 10/19/22 20:00 ABG HCO3 21.5 mmol/L (22-26) L 10/19/22 20:00 ABG Base Excess -3.5 mmol/L (-2.0-2.0) L 10/19/22 20:00 [place] Test N/a 10/19/22 20:00 Hematocrit 37.4 % (42-52) L 10/19/22 20:00 O2 Delivery Device Vent 10/19/22 20:00 FiO2 100.0 % 10/19/22 17:39 Tidal Volume 0.45 10/19/22 17:39 PEEP 5.0 cmH20 10/19/22 17:39 Stage Producer ID Ivis 10/19/22 20:00 Sodium 141 mmol/L (136-145) 10/19/22 17:30 Potassium 3.9 mmol/L (3.5-5.1) 10/19/22 17:30 Chloride 107 mmol/L (98-107) 10/19/22 17:30 Carbon Dioxide 25 mmol/L (22-29) 10/19/22 17:30 Anion Gap 12.9 (5-19) 10/19/22 17:30 BUN 24 mg/dL (8-23) H 10/19/22 17:30 Creatinine 1.1 mg/dL (0.7-1.2) 10/19/22 17:30 GFR Calculation 66.2 mL/min (90-130) L 10/19/22 17:30 Glucose 108 mg/dL (65-115) 10/19/22 17:30 POC Glucose 90 mg/dL (70-110) 10/19/22 20:41 Calculated Osmolality 297 mOsm/kg (285-295) H 10/19/22 17:30 Calcium 9.0 mg/dL (8.5-10.5) 10/19/22 17:30 Magnesium 2.0 mg/dL (1.7-2.3) 10/19/22 17:30 Total Bilirubin 0.4 mg/dL (0.15-1.2) 10/19/22 17:30 AST 21 U/L (0-40) 10/19/22 17:30 ALT 28 U/L (0-41) 10/19/22 17:30 Alkaline Phosphatase 51 U/L (40-130) 10/19/22 17:30 Troponin T Baseline 12 ng/L (0-15) 10/19/22 17:30 Troponin T 120 Minute 11.16 ng/L (0-15) 10/19/22 19:25 Delta Troponin T -0.84 ABS# (0-10) L 10/19/22 19:25 NT-Pro-B Natriuret Pep 272 pg/mL (0-125) H 10/19/22 17:30 Total Protein 6.6 g/dL (6.6-8.7) 10/19/22 17:30 Albumin 3.9 g/dL (3.5-5.2) 10/19/22 17:30 Globulin 2.7 g/dL (1.3-4.6) 10/19/22 17:30 TSH 0.88 uIU/mL (0.27-4.20) 10/19/22 17:30 Urine Color Yellow (Yellow) 10/19/22 18:16 Urine Appearance Clear (CLEAR) 10/19/22 18:16 Urine pH 6 (5-7) 10/19/22 18:16 Ur Specific [place] 1.020 (1.005-1.030) 10/19/22 18:16 Urine Protein Neg (Negative) 10/19/22 18:16 Urine Glucose (UA) Norm (Normal) 10/19/22 18:16 Urine Ketones Negative (Negative) 10/19/22 18:16 Urine Blood 3+ (Negative) H 10/19/22 18:16 Urine Nitrate Negative (Negative) 10/19/22 18:16 Urine Bilirubin Neg (Negative) 10/19/22 18:16 Urine Urobilinogen Norm mg/dL (Negative) 10/19/22 18:16 Ur Leukocyte Esterase Negative (Negative) 10/19/22 18:16 Urine RBC 0-4 /hpf (0-2) H 10/19/22 18:16 Urine WBC 0-4 /hpf (0-5) H 10/19/22 18:16 Ur Squamous Epith Cells 0-4 /hpf (0-5) H 10/19/22 18:16 Amorphous Sediment Not Reportable 10/19/22 18:16 Urine Bacteria Trace /hpf (NONE) 10/19/22 18:16 Urine Mucus Trace /hpf 10/19/22 18:16 Salicylates < 0.3 mg/dL (3-10) L 10/19/22 17:30 Urine Opiates Screen Negative ng/mL (Negative) 10/19/22 18:16 Acetaminophen < 5.0 ug/mL (10-30) L 10/19/22 17:30 Ur Barbiturates Screen Negative ng/mL (Negative) 10/19/22 18:16 Ur Phencyclidine Scrn Negative ng/mL (Negative) 10/19/22 18:16 Ur Amphetamines Screen Negative ng/mL (Negative) 10/19/22 18:16 U Benzodiazepines Scrn Negative ng/mL (Negative) 10/19/22 18:16 Urine Cocaine Screen Negative ng/mL (Negative) 10/19/22 18:16 U Marijuana (THC) Screen Negative ng/mL (Negative) 10/19/22 18:16 Ethyl Alcohol < 10 mg/dL (0-10) 10/19/22 17:30 Micro: Microbiology 10/19/22 19:00 Blood Culture - Preliminary Blood SPECIMEN COLLECTED 10/19/22 17:44 Blood Culture - Preliminary Blood SPECIMEN COLLECTED A&P Assessment and plan (1) Acute alteration in mental status: Patient brought to the emergency room, intubated after an aberrant suicide attempt by benzodiazepine overdose following which he became somnolent, started to vomit and due to concern for airway compromise was intubated in the field. He remains intubated and sedated with fentanyl and propofol at this time. Ct head without any acute changes, noted chronic lacunar infarcts Urine drug screen is currently negative, negative blood alcohol, salicylate and acetaminophen levels Blood cx taken and pending at this time ABG without signs of hypoxica or hypercapnea EKG with sinus rhythm, troponin series without significant delta (2) Suicide attempt by benzodiazepine overdose: Urine drug screen currently negative for benzodiazepenes Uncertain which drug the patient may have taken poison control has been contacted from ER (3) Acute respiratory failure: likely related to overdose of psychotropic substance LLL infiltrate likely from aspiration given reported vomiting- started on Zosyn empirically Plan Suicide attempt: Psych consult once extubated and able to talk Attestations Medical Necessity Statement*: > 2mdinight admission anticipated for above defned care Critical Care Time: The high probability of a clinically significant, sudden or life threatening deterioration of the patient's [respiratory, cardiac, neuro] system(s) required my full and direct attention, intervention and personal management. The critical care time is as shown. This time is in addition to time spent performing any reported procedures but includes the following: [x] Data and vital sign review and interpretation [x] Patient assessment, examination and intervention [x] Documentation [x] Medication orders and management Critical Care Time (min): 45 Coding Level of Care Code Acute Code for Chg Fwd Diagnoses Acute alteration in mental status R41.82 Suicide attempt by benzodiazepine overdose T42.4X2A Acute respiratory failure J96.00
[2022-10-20] VITALS (226 sets, daily range): BP systolic 88–173; BP diastolic 53–126; PULSE 56–91; RESP 14–23; TEMP 35.9–37.8; O2SAT 88–100
--- NOTE | 2022-10-20 01:47 | PC.NURSE ---
ICU arrival; Pt arrived to ICU7 @195 from ED via gurney. Intubated and bagged for transport. Pt moved over to ICU bed by assistance of RNX3 and RT. Tele reveals NSR. ET tube found to be pulled out 2cm reported from initial intubation. ET advanced 2cm. Stat CXR to confirm ET and OG placement obtained. Gtt running as follows; Fent @100, Prop @15, and NS bolus open to gravity infusing through right IJ central line. Initial VS that were obtained by this RN revealed unobtainable axillary temp. Skin cool to touch. Rectal probe placed resulting in 95.1*. Bear hugger placed on pt, and MD notified. Contact was made with family. RN asked that the medication bottles that pt is currently taking, be brought to ICU at earliest convenience. Poison control updated on pt current status.
[2022-10-20 03:10] LABS: Basophils % 0.2 %; Eosinophils # 0.1 10^3/uL (0.0-0.8); Eosinophils % 1.1 %; Hematocrit 35.4 % (42.0-52.0); Hemoglobin 11.2 g/dL (11.7-16.6); Lymphocytes # 1.4 10^3/uL (0.8-4.8); Mean Corpuscular HGB Conc 31.6 g/dL (30.0-36.0); Mean Corpuscular Hemoglobin 29.2 pg (28.0-34.0); Mean Corpuscular Volume 92.2 fl (80-94); Mean Platelet Volume 11.1 fL (7.4-10.4); Monocytes # 0.7 10^3/uL (0.2-0.9); Monocytes % 7.5 %; Neutrophils # 6.81 10^3/uL (1.8-7.7); Neutrophils % 75.5 %; Nucleated Red Blood Cells % 0 %; Platelet Count 181 10^3/cmm (130-400); Red Blood Count 3.84 10^6/uL (4.1-5.3); Red Cell Distribution Width 14.6 % (12.1-15.1)
[2022-10-20 03:35] LABS: Alanine Aminotransferase 21 U/L (0-41); Albumin Level 3.3 g/dL (3.5-5.2); Alkaline Phosphatase 42 U/L (40-130); Anion Gap 13.8 (5-19); Aspartate Amino Transferase 18 U/L (0-40); Blood Urea Nitrogen 20 mg/dL (8-23); Carbon Dioxide 23 mmol/L (22-29); Chloride 107 mmol/L (98-107); Globulin 2.3 g/dL (1.3-4.6); Glomerular Filtration Rate 73.9 mL/min (90-130); Glucose 106 mg/dL (65-115); Osmolality Calculated 293 mOsm/kg (285-295); Potassium 3.8 mmol/L (3.5-5.1); Sodium 140 mmol/L (136-145); Total Bilirubin 0.4 mg/dL (0.15-1.2); Total Protein 5.6 g/dL (6.6-8.7)
[2022-10-20] MEDS: propofol 1,000 MG/100 ML INJ 7.2 MG IV (04:45)
[2022-10-20 05:09] LABS: ABG PCO2 36.1 mmHg (35-45); ABG PH Result 7.43 (7.35-7.45); Arterial Blood Gas Hematocrit 43.8 % (42-52); Base Excess ABG -0.1 mmol/L (-2.0-2.0); Blood Gas Operator Identificat JB; Blood Gas Sample Site Brachial, right; Blood Gas Sample Type Arterial; Blood Gas Tidal Volume 0.45; HCO3 ABG 23.9 mmol/L (22-26); HGB O2 Sat 96.3 % (95-100); Ionized Calcium Level - ABG 1.2 mmol/L (1.1-1.4); Methemoglobin 0.8 % (0.4-1.5); Oxygen Device VENT; Oxygen Saturation ABG 97.1; PO2 ABG 95.8 mmHg (80.0-100.0); Potassium Level - ABG 3.4 mmol/L (3.5-5.0); Total Hemoglobin 14.3 g/dL (14-18)
[2022-10-20] MEDS: piperacillin-tazobactam 3.375 GM in sodium chloride 0.9% (plus) 50 ML IV (06:34)
--- NOTE | 2022-10-20 07:51 | PC.NURSE ---
Pt direct entry midwife continues to to call unit requesting update in pt status. HIPPA restrictions explained on why information is unable to be released.
--- NOTE | 2022-10-20 07:56 | PC.PHAR ---
Addendum entered by Veronica Vogt 10/20/22 09:30: [facility] still not open-medications entered are from what shows was filled recently on ext med history and previous entered med list-notes are made in the pharmacy comments with last filled dates or if on previous entered med list- Original Note: pt unable to verify medications due to being intubated-called pts contact teresita wali [phone] she states the pt takes care of his own medications-states she thought the pt may take anxiety meds and plavix ext med history doesnt show either filled-brilinta 90mg bid was filled 10/19/22 90d/s called [facility] [phone] no answer will try to call again later
[2022-10-20] MEDS: carvedilol 12.5 mg Tablet PO ×2 (09:11→17:25)
[2022-10-20] MEDS: aspirin 81 mg EC Tablet PO (09:11)
[2022-10-20] MEDS: pantoprazole DR 40 mg Tablet PO (09:11)
[2022-10-20] MEDS: gabapentin 300 mg Capsule NG-TUBE (09:11)
[2022-10-20] MEDS: ticagrelor 90 mg Tablet PO ×2 (09:11→17:25)
--- NOTE | 2022-10-20 10:38 | PM.PN ---
Subjective Subjective: Adequate urine output FiO2 30% PEEP 5 Weaning trial. Currently patient Patient is opening eyes to verbal stimuli There was concern for clonidine overdose however urine tox did not show benzodiazepines Vitals/I&O/Wt Last Vital Signs Temp 98.7 F 10/20/22 06:00 Pulse 62 10/20/22 10:10 Resp 16 10/20/22 08:00 BP 115/66 10/20/22 10:10 Pulse Ox 96 10/20/22 10:10 O2 Del Method 10/20/22 04:20 FiO2 30 10/20/22 10:00 10/19/22 10/20/22 10/20/22 22:59 06:59 14:59 Intake Total 1004 / 1004 275.550 / 1279.550 50 / 50 Output Total 125 / 125 650 / 775 675 / 675 Balance 879 / 879 -374.450 / 504.550 -625 / -625 Weight last 48 hrs Weight 83.975 kg Weight 83.971 kg Physical Exam Narrative: Patient is intubated and sedated Opening eyes to verbal stimuli Minimal ventilator settings PEEP 5 FiO2 30% No sign of fluid overload Bilateral assisted breath sounds Abdomen seems soft Afebrile Urinary Catheter Management: Mendez: Cath Placed During This Visit: yes Reason for Continuing Indwelling Catheter: Accurate Measurement of Urinary Output in Critically Ill Patients Urinary Catheter Date of Insertion: 10/19/22 Urinary Catheter Time of Insertion: 17:15 Data 10/20/22 02:48 10/20/22 02:48 Micro: Microbiology 10/19/22 16:45 Gram Stain - Final Sputum - Endotracheal Tube Aspirate 10/19/22 19:00 Blood Culture - Preliminary Blood SPECIMEN COLLECTED 10/19/22 17:44 Blood Culture - Preliminary Blood SPECIMEN COLLECTED A&P Assessment and plan (1) Suicide attempt by benzodiazepine overdose: (2) Acute alteration in mental status: (3) Acute respiratory failure: (4) DIONICIO (generalized anxiety disorder): (5) Lumbar radiculopathy: (6) GERD (gastroesophageal reflux disease): Qualifiers: Esophagitis presence: without esophagitis Qualified Code(s): K21.9 - Gastro-esophageal reflux disease without esophagitis (7) COPD (chronic obstructive pulmonary disease): Qualifiers: COPD type: chronic bronchitis Chronic bronchitis type: simple Qualified Code(s): J41.0 - Simple chronic bronchitis (8) CAD (coronary artery disease): Qualifiers: Coronary Disease-Associated Artery/Lesion type: [place] artery [place] vs. transplanted heart: [place] heart Associated angina: with other forms of angina Qualified Code(s): I25.118 - Atherosclerotic heart disease of [place] coronary artery with other forms of angina pectoris Plan Respiratory failure requiring mechanical ventilation Concern for suicidal attempt with drug overdose Benzodiazepine negative in his urine however he was concerned that he overdosed on Klonopin Will interview the patient once he is extubated Will need psych consult as well Minimal vent settings Sedation vacation, weaning trial and plan for extubation later today Patient is full code Hold tube feedings for now Hemodynamically stable DVT prophylaxis on board Agree with D5 normal saline IV fluid hydration for now I do not see any signs of infection he has been started on Zosyn He was given aspirin and Brilinta as well troponin without significant delta EKG without ischemic or infarctive changes Attestations Medical Necessity Statement*: Continue extra management Plan for extubation today Time Spent in Patient Care: 35 Coding Level of Care Code Acute Code for Chg Fwd Diagnoses Suicide attempt by benzodiazepine overdose T42.4X2A Acute alteration in mental status R41.82 Acute respiratory failure J96.00 DIONICIO (generalized anxiety disorder) F41.1 Lumbar radiculopathy M54.16 GERD (gastroesophageal reflux disease) K21.9 Esophagitis presence: without esophagitis COPD (chronic obstructive pulmonary disease) J41.0 COPD type: chronic bronchitis Chronic bronchitis type: simple CAD (coronary artery disease) I25.118 Coronary Disease-Associated Artery/Lesion type: [place] artery [place] vs. transplanted heart: [place] heart Associated angina: with other forms of angina
--- NOTE | 2022-10-20 10:42 | USCV_ITS ---
Rikki Gross Age: 72 Gender: M : 1950 Exam Date: 10/20/2022 11:03 Ordering Phys: Sam Alan MD Technologist: GHASSAN Exam Location: [facility] [place] Indication: HYPOXIC BP: 113 / 69 HR: 60 Rhythm: Sinus Technical Quality: Adequate MEASUREMENTS (Male / Female) Normal Values 2D ECHO LVOT Diameter 2.0 cm LV Ejection Fraction MOD 2C 67.8 % LV Ejection Fraction 2C AL 68.3 % LA Diameter 3.6 cm LA Width 3.4 cm LA Height 4.5 cm RA Width 4.6 cm RA Height 5.4 cm Aorta at Sinotubular Diameter 3.4 cm IVC Diameter 2.7 cm M-MODE Aortic Annulus Diameter 3.3 cm LA Ao Ratio MM 1.1 MV E Point Septal Separation 0.8 cm DOPPLER AV Peak Velocity 113.7 cm/s LVOT Peak Velocity 110.0 cm/s AV Area Cont Eq vti 3.3 cm squared AV Area Cont Eq pk 3.0 cm squared MV Peak Velocity 69.0 cm/s MV Area PHT 5.0 cm squared Mitral E to A Ratio 0.9 MV E' Velocity 35.0 cm/s Mitral E to MV E' Ratio 7.0 Mitral E to LV E' Lateral Ratio 6.3 Mitral E to LV E' Septal Ratio 7.8 TR Peak Velocity 89.0 cm/s TR Peak Gradient 3.2 mmHg TR Mean Velocity 97.8 cm/s TR Mean Gradient 4.2 mmHg TR Velocity Time Integral 38.7 cm Right Atrial Pressure 15.0 mmHg Pulmonary Artery Systolic Pressu 18.2 mmHg PV Peak Velocity 99.0 cm/s RV Acceleration Time 0.2 s RV Ejection Time 0.3 s RV AcT/ET 0.5 FINDINGS Left Ventricle Normal left ventricular size, systolic function and wall thickness, with no regional wall motion abnormalities. Left ventricular ejection fraction is estimated at 60 %. Normal diastolic function. Right Ventricle Normal right ventricular size and systolic function. RVSP could not be calculated due to incomplete tricuspid regurgitation velocity profile. Right Atrium Normal right atrial size. Right atrial pressure estimated at 15 mm Hg. Left Atrium Normal left atrial size. Mitral Valve Structurally normal mitral valve. No mitral valve stenosis. Trace mitral valve regurgitation. Aortic Valve Structurally normal trileaflet aortic valve. No aortic valve stenosis. No aortic valve regurgitation. Tricuspid Valve Structurally normal tricuspid valve. No tricuspid valve stenosis. Trace tricuspid valve regurgitation. Pulmonic Valve Structurally normal pulmonic valve. No pulmonary valve stenosis. Trace pulmonary valve regurgitation. Pericardium No pericardial effusion. Aorta Normal size aortic root and proximal ascending aorta. IVC Dilated IVC with decreased respiratory variation. CONCLUSIONS 1. Normal left ventricular size, systolic function and wall thickness, with no regional wall motion abnormalities. Left ventricular ejection fraction is estimated at 60 %. Normal diastolic function. 2. No significant valvular abnormality. 3. No change when compared to study dated 10/13/2016. Evelyn Fan MD (Electronically Signed) Final Date: 20 October 2022 17:10 S
[2022-10-20 11:42] LABS: D Dimer 0.99 ug/mIFEU (0-0.59)
[2022-10-20 12:02] LABS: Vitamin B12 972 pg/mL (232-1245)
--- NOTE | 2022-10-20 15:46 | PC.NURSE ---
Extubated Pt following commands. Placed on pressure support by RT. After doing well on pressure support, pt was extubated and placed on 2L nasal cannula. Pt's grandson at bedside.
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
[2022-10-20] MEDS: enoxaparin 40 mg/0.4 mL Syringe SUBCUT (21:20)
[2022-10-21] VITALS (81 sets, daily range): BP systolic 127–163; BP diastolic 49–101; PULSE 65–96; RESP 16–28; TEMP 36.7–37.3; O2SAT 90–100
[2022-10-21] MEDS: ondansetron 2 mg/ML SDV 2 mL 4 MG IVP (02:23)
[2022-10-21 03:13] LABS: Basophils % 0.3 %; Eosinophils # 0.1 10^3/uL (0.0-0.8); Eosinophils % 1.5 %; Hematocrit 39.6 % (42.0-52.0); Hemoglobin 12.3 g/dL (11.7-16.6); Lymphocytes # 1.2 10^3/uL (0.8-4.8); Lymphocytes % 12.9 %; Mean Corpuscular HGB Conc 31.1 g/dL (30.0-36.0); Mean Corpuscular Hemoglobin 29.1 pg (28.0-34.0); Mean Corpuscular Volume 93.6 fl (80-94); Mean Platelet Volume 11.2 fL (7.4-10.4); Monocytes # 0.9 10^3/uL (0.2-0.9); Monocytes % 10.6 %; Neutrophils % 74.1 %; Nucleated Red Blood Cells % 0 %; Platelet Count 174 10^3/cmm (130-400); Red Blood Count 4.23 10^6/uL (4.1-5.3); Red Cell Distribution Width 14.8 % (12.1-15.1); White Blood Count 8.9 10^3/uL (4.0-10.0)
[2022-10-21 03:43] LABS: Alanine Aminotransferase 20 U/L (0-41); Albumin Level 3.5 g/dL (3.5-5.2); Alkaline Phosphatase 45 U/L (40-130); Anion Gap 14.5 (5-19); Aspartate Amino Transferase 21 U/L (0-40); Blood Urea Nitrogen 15 mg/dL (8-23); Calcium 8.3 mg/dL (8.5-10.5); Carbon Dioxide 24 mmol/L (22-29); Chloride 107 mmol/L (98-107); Globulin 2.6 g/dL (1.3-4.6); Glomerular Filtration Rate 73.9 mL/min (90-130); Glucose 78 mg/dL (65-115); Osmolality Calculated 294 mOsm/kg (285-295); Potassium 3.5 mmol/L (3.5-5.1); Sodium 142 mmol/L (136-145); Thyroid Stimulating Hormone 0.57 uIU/mL (0.27-4.20); Total Bilirubin 0.5 mg/dL (0.15-1.2); Total Protein 6.1 g/dL (6.6-8.7)
[2022-10-21] MEDS: escitalopram 10 mg Tablet PO (08:59)
[2022-10-21] MEDS: pantoprazole DR 40 mg Tablet PO (08:59)
[2022-10-21] MEDS: aspirin 81 mg EC Tablet PO (08:59)
[2022-10-21] MEDS: ticagrelor 90 mg Tablet PO ×2 (08:59→18:17)
[2022-10-21] MEDS: carvedilol 12.5 mg Tablet PO ×2 (08:59→18:17)
--- NOTE | 2022-10-21 09:53 | XR_ITS ---
WS: [id number] Exam: XR chest 1V portable [id number] Date/Time of Exam: 10/21/2022 9:56 AM Reason For Exam: hypoxia Comparison 10/19/2022. The lungs are clear and fully expanded. Mild cardiac enlargement. A right-sided IJ catheter ends in t he region of the cavoatrial junction. ET tube has been removed. Enteric tube has been removed. Signs of coronary artery stenting. No pleural effusions. The mediastinum is normal in contour. Bony structu res are intact. Degenerative change and levoscoliosis of the T-spine. XR/XR chest 1V portable [id number] IMPRESSION: 1. Mild cardiac enlargement. No acute process noted. 2. Right-sided IJ catheter in satisfactory position. 3. No acute infiltrate or other significant finding.
--- NOTE | 2022-10-21 09:54 | P.PN_ITS ---
Subjective Subjective: Patient is complaining of cough, will request chest x-ray No bowel movement, start senna S We will follow-up with speech therapy and neuropsychiatric evaluation Added senna S Continue aspirin and Brilinta Patient is complaining of muscle soreness in midepigastric region from excessive cough Vitals/I&O/Wt Last Vital Signs Temp 99.1 F 10/21/22 03:00 Pulse 96 10/21/22 09:05 Resp 20 H 10/21/22 09:05 BP 151/87 10/21/22 09:05 Pulse Ox 100 10/21/22 09:00 O2 Del Method 10/21/22 03:00 O2 Flow Rate 2 10/21/22 03:00 FiO2 30 10/20/22 18:00 10/20/22 10/21/22 10/21/22 22:59 06:59 14:59 Intake Total 100 / 263.767 240 / 240 Output Total 800 / 2150 300 / 2450 Balance -700 / -1886.233 -300 / -2186.233 240 / 240 Weight last 48 hrs Weight 78.953 kg Weight 83.975 kg Weight 83.971 kg Physical Exam Narrative: Lethargic and fatigued however able to answer simple questions Currently doing well on 2 L nasal cannula S1, S2 Hemodynamically stable Abdomen soft No extremity edema Nonfocal neuro exam No skin rash Urinary Catheter Management: Mendez: Cath Placed During This Visit: yes Reason for Continuing Indwelling Catheter: Accurate Measurement of Urinary Output in Critically Ill Patients Urinary Catheter Date of Insertion: 10/19/22 Urinary Catheter Time of Insertion: 17:15 Data 10/21/22 02:41 10/21/22 02:41 Micro: Microbiology 10/19/22 19:00 Blood Culture - Preliminary Blood NEGATIVE TO DATE 10/19/22 17:44 Blood Culture - Preliminary Blood NEGATIVE TO DATE 10/19/22 16:45 Gram Stain - Final Sputum - Endotracheal Tube Aspirate Sputum Culture - Preliminary A&P Assessment and plan (1) Suicide attempt by benzodiazepine overdose: (2) Acute alteration in mental status: (3) GERD (gastroesophageal reflux disease): Qualifiers: Esophagitis presence: without esophagitis Qualified Code(s): K21.9 - Gastro-esophageal reflux disease without esophagitis (4) Lumbar radiculopathy: (5) COPD (chronic obstructive pulmonary disease): Qualifiers: COPD type: chronic bronchitis Chronic bronchitis type: simple Qualified Code(s): J41.0 - Simple chronic bronchitis (6) Essential hypertension: (7) Hyperlipidemia: Qualifiers: Hyperlipidemia type: other hyperlipidemia Qualified Code(s): E78.49 - Other hyperlipidemia (8) CAD (coronary artery disease): Qualifiers: Coronary Disease-Associated Artery/Lesion type: [place] artery [place] vs. transplanted heart: [place] heart Associated angina: with other forms of angina Qualified Code(s): I25.118 - Atherosclerotic heart disease of [place] coronary artery with other forms of angina pectoris (9) Hypoxia: Plan Patient is medically cleared to be transferred to [facility] psych Will request neuropsych consultation Added escitalopram for depression Patient is stating that he made a very stupid decision and he is normal for him to do anything future History of coronary disease no active chest pain Productive cough requested sputum culture and chest x-ray to rule out pneumonia Hypoxia without respiratory distress wean oxygen to room air however he carries history of COPD He can be transferred to [facility] on one-to-one supervision Full code Speech therapy to see currently is on dysphagia diet Physical therapy requested as well Successfully extubated to nasal cannula 10/20 Attestations Medical Necessity Statement*: He can be transferred to [facility] Time Spent in Patient Care: 30 Coding Level of Care Code Acute Code for Chg Fwd Diagnoses Suicide attempt by benzodiazepine overdose T42.4X2A Acute alteration in mental status R41.82 GERD (gastroesophageal reflux disease) K21.9 Esophagitis presence: without esophagitis Lumbar radiculopathy M54.16 COPD (chronic obstructive pulmonary disease) J41.0 COPD type: chronic bronchitis Chronic bronchitis type: simple Essential hypertension I10 Hyperlipidemia E78.49 Hyperlipidemia type: other hyperlipidemia CAD (coronary artery disease) I25.118 Coronary Disease-Associated Artery/Lesion type: [place] artery [place] vs. transplanted heart: [place] heart Associated angina: with other forms of angina Hypoxia R09.02
--- NOTE | 2022-10-21 12:27 | PC.CHAP ---
Pastoral Care Encounter/Spiritual Assessment Type of Contact [] Declined oil spot washer visit [] Patient/Family/Request visit [] Outpatient visit [] Follow-up visit [] Physician referral [] Code/Alert [x] Routine visit [] Staff referral [] Actively dying [] Patient sleeping [] Family support [] [] Out of room [] Palliative care [] [] Receiving care in room [] Pre-surgical visit [] Trauma [] Long length of stay [x] ICU visit [x] Other: confusion as to why he is in hospital.. 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 Interventions [x] Prayer [] Active listening [] Non-anxious presence [] Spiritual/emotional support [] Crisis/trauma care [] Spiritual counseling [] Bereavement support [] Provided bereavement packet [] Provided Bible/devotional materials [] Provided toy/stuffed animal, coloring book to patient or family member [] Provided Communion [] Anointing/[place] [] Salvation [x] Completed spiritual assessment [] Other: Impact on Illness or Injury [] Angry [] Fearful [] Anxious [] Often cries [] Exhaustion [] Unable to work [] Unable to attend shinto [] Unable to walk/stand [] Unable to read [] Unable to drive [] Unable to eat/drink [] Unable to sleep [] Unable to be with family [] Patient intubated [] Other: Summary Time spent with patient
--- NOTE | 2022-10-21 16:49 | W.PM.NPUPNS ---
Subjective NPU Subjective: Patient presented today reporting that he wanted to go home. We discussed the circumstances of his admission. Namely the 72-year-old white male with a previous history of suicide attempt living alone with medical problems with now a current suicide attempt with no plan for aftercare, no plan for what to do with the Klonopin as this medication given it was the source of overdose. We discussed that regardless of what his report is it would be weight below standard care to send him home without a general psychiatry inpatient stay given all the circumstances that led to the overdose remain present. He agreed that he did not like the situation but that he understood the reasoning. We discussed the fact that there would likely be a 96-hour hold. Mental Status Exam MSE Comments: This is an obese older white male looking slightly younger than his stated age in hospital gown with limited grooming and eye contact. No abnormal movement except psychomotor retardation. Cooperative with exam in mild to moderate distress. As he has some signs of pain with movement. Speech was decreased rate and volume. Mood described as better, affect subdued. Thought process organized. Thought content: Patient denied suicidal or homicidal ideation, there were no delusions reported noted, he denied any auditory or visualizations. Attention and concentration seemed appropriate and memory was mostly liable but not were formally tested. He is alert only x3. Insight and judgment are fair to poor control impaired. Vitals/I&O/Wt Last Vital Signs Temp 98.1 F 10/21/22 16:00 Pulse 69 10/21/22 16:00 Resp 22 H 10/21/22 16:00 BP 163/90 10/21/22 16:00 Pulse Ox 94 10/21/22 16:00 O2 Del Method 10/21/22 16:00 O2 Flow Rate 2 10/21/22 03:00 FiO2 30 10/20/22 18:00 Weight last 48 hrs Weight 79.379 kg Weight 78.953 kg Physical Exam Urinary Catheter Management: Mendez: Cath Placed During This Visit: yes Reason for Continuing Indwelling Catheter: Other Urinary Catheter Date of Insertion: 10/19/22 Urinary Catheter Time of Insertion: 17:15 Data NPU 10/21/22 02:41 10/21/22 02:41 Micro: Microbiology 10/19/22 16:45 Gram Stain - Final Sputum - Endotracheal Tube Aspirate Sputum Culture - Final Microbiology 10/19/22 16:45 Sputum - Endotracheal Tube Aspirate Gram Stain - Final 10/19/22 16:45 Sputum - Endotracheal Tube Aspirate Sputum Culture - Final A&P Assessment and plan (1) Suicide ideation: (2) Major depression: (3) Partner relational problem: Plan 72 year old white single male with recent overdose with suicidal intent with past history of treatment for depression and previous suicide attempt. The patient will require acute involuntary inpatient psychiatric hospitalization at geropsychiatry unit once stabilized. Recommend initiation of SSRI. 1. Continue current medication. We will continue to recommend starting SSRI. 2. Given the circumstances that his history psychiatric psychiatric inpatient stay will be appropriate in the standard care given his demographics and psychosocial history. 3. Agree with 96-hour hold given his current resistance to current treatment plan. Attestations NPU Medical Necessity Statement*: N/A. Please see primary team note for medical necessity however he will require acute psychiatric hospitalization. Coding Level of Care Code Acute Code for [facility] Fwd Diagnoses Suicide ideation R45.851 Major depression F32.9 Partner relational problem Z63.0
[2022-10-21] MEDS: enoxaparin 40 mg/0.4 mL Syringe SUBCUT (21:21)
--- NOTE | 2022-10-21 22:33 | PC.NURSE ---
Notice of Rights of Involuntary Patient has been read to patient by myself, Hieu Friedman RNwoodworking machine offbearer of 10/21/22 at 2233. MS Charge Nurse Ryan Rueda RN & JR Narayanan- Security were at bedside to witness. All patient questions have been answered & he acknowledges understanding of the same.
[2022-10-22] VITALS (10 sets, daily range): BP systolic 118–147; BP diastolic 61–79; PULSE 62–80; RESP 16–23; TEMP 36.4–36.9; O2SAT 90–96
[2022-10-22] MEDS: oxyCODONE 5 mg IR Tab/Cap PO (00:47)
[2022-10-22] MEDS: amlodipine 5 mg Tablet PO (05:39)
--- NOTE | 2022-10-22 06:30 | P.PN_ITS ---
Subjective Subjective: Appreciate psych recommendations and consultation Patient wanted to leave AGAINST MEDICAL ADVICE yesterday however he has been put on 96-hour hold He will need [facility] psych placement Blood pressure is stable Patient was asking about his home medications, Vitals/I&O/Wt Last Vital Signs Temp 98.0 F 10/22/22 05:03 Pulse 77 10/22/22 05:03 Resp 19 H 10/22/22 05:03 BP 119/71 10/22/22 05:03 Pulse Ox 90 10/22/22 05:03 O2 Del Method 10/22/22 05:03 O2 Flow Rate 2 10/21/22 03:00 FiO2 30 10/20/22 18:00 10/21/22 10/21/22 10/22/22 14:59 22:59 06:59 Intake Total 480 / 480 720 / 1200 480 / 1680 Output Total 1100 / 1100 350 / 1450 Balance 480 / 480 -380 / 100 130 / 230 Weight last 48 hrs Weight 78.953 kg Physical Exam Narrative: Nonfocal neuro exam Hemodynamically stable Currently doing well on room air Abdomen soft No signs of edema Awake and alert No signs of meningitis S1, S2 No audible stridor or wheezing Urinary Catheter Management: Mendez: Cath Placed During This Visit: yes Reason for Continuing Indwelling Catheter: Other Urinary Catheter Date of Insertion: 10/19/22 Urinary Catheter Time of Insertion: 17:15 Data 10/21/22 02:41 10/21/22 02:41 Micro: Microbiology 10/19/22 16:45 Gram Stain - Final Sputum - Endotracheal Tube Aspirate Sputum Culture - Final A&P Assessment and plan (1) Major depression: (2) Suicide ideation: (3) Hypoxia: (4) DIONICIO (generalized anxiety disorder): (5) Suicide attempt by benzodiazepine overdose: (6) Acute alteration in mental status: (7) Acute respiratory failure: (8) COPD (chronic obstructive pulmonary disease): Qualifiers: COPD type: chronic bronchitis Chronic bronchitis type: simple Qualified Code(s): J41.0 - Simple chronic bronchitis Plan Acute hypoxia: Resolved currently on room air Patient has been successfully extubated to room air Suicide attempt Psych evaluated him and recommended [facility] psych placement currently he is on 96- hour hold Hypertension: Blood pressure stable after initiation of home regimen Full code Currently on regular diet No overt aspiration Awaiting placement Start SSRI Attestations Medical Necessity Statement*: Awaiting placement Time Spent in Patient Care: 20 Coding Level of Care Code Acute Code for Chg Fwd Diagnoses Major depression F32.9 Suicide ideation R45.851 Hypoxia R09.02 DIONICIO (generalized anxiety disorder) F41.1 Suicide attempt by benzodiazepine overdose T42.4X2A Acute alteration in mental status R41.82 Acute respiratory failure J96.00 COPD (chronic obstructive pulmonary disease) J41.0 COPD type: chronic bronchitis Chronic bronchitis type: simple
--- NOTE | 2022-10-22 09:15 | ECG_ITS ---
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 Measurements Intervals [place] Rate: 67 P: 66 RI: 124 QRS: 4 QRSD: 95 T: 32 QT: 363 QTc: 385 Interpretive Statements SINUS RHYTHM NONSPECIFIC T-WAVE ABNORMALITY Compared to ECG 10/19/2022 21:39:03 No significant changes Electronically Signed On 10-22-2022 22:23:21 ORDER TRACER by Evelyn Fan M.D. [id number]
[2022-10-22] MEDS: ticagrelor 90 mg Tablet PO ×2 (09:53→18:01)
[2022-10-22] MEDS: aspirin 81 mg EC Tablet PO (09:53)
[2022-10-22] MEDS: carvedilol 12.5 mg Tablet PO ×2 (09:53→18:00)
[2022-10-22] MEDS: escitalopram 10 mg Tablet PO (09:54)
[2022-10-22] MEDS: sennosides-docusate Tablet 1 TAB PO (09:54)
[2022-10-22] MEDS: losartan 50 mg Tablet PO (09:54)
[2022-10-22] MEDS: pantoprazole DR 40 mg Tablet PO (09:54)
[2022-10-22] MEDS: isosorbide mononitrate ER 30 mg Tablet PO (09:54)
[2022-10-22] MEDS: montelukast sodium 10 mg Tablet PO (09:54)
[2022-10-22 11:44] LABS: SARS Covid-2 Antigen negative (Negative)
[2022-10-22 12:17] LABS: Add Urine Microscopic? YES; Bilirubin Urine 1+ (Negative); Blood Urine 3+ (Negative); Glucose Urine UA Norm (Normal); Ketones Urine 1+ (Negative); Leukocyte Esterase Urine Negative (Negative); Nitrate Urine Negative (Negative); Protein Urine 1+ (Negative); Urine Appearance Clear (CLEAR); Urine Color Yellow (Yellow); Urobilinogen Urine 4 mg/dL (Negative); pH Urine 6 (5-7)
[2022-10-22 12:32] LABS: Add Urine Culture? No; Uric Acid Crystals Urine 25-40 /hpf
--- NOTE | 2022-10-22 14:04 | PC.SOCIAL ---
IMM update IMM not updated with patient as he is on 96 hour hold and geripsych placement is being worked on.
[2022-10-22] MEDS: enoxaparin 40 mg/0.4 mL Syringe SUBCUT (21:40)
[2022-10-23] VITALS (7 sets, daily range): BP systolic 100–167; BP diastolic 62–83; PULSE 62–70; RESP 15–21; TEMP 36.6–36.9; O2SAT 93–96
[2022-10-23] MEDS: amlodipine 5 mg Tablet PO (05:05)
--- NOTE | 2022-10-23 07:33 | PC.NURSE ---
Report given to NINA Alonso
--- NOTE | 2022-10-23 07:51 | PC.NURSE ---
[facility] called to deny patient. Reports they can not admit him due to too many current medical complications.
[2022-10-23] MEDS: ticagrelor 90 mg Tablet PO ×2 (09:25→17:39)
[2022-10-23] MEDS: carvedilol 12.5 mg Tablet PO ×2 (09:26→17:39)
[2022-10-23] MEDS: isosorbide mononitrate ER 30 mg Tablet PO (09:26)
[2022-10-23] MEDS: sennosides-docusate Tablet 1 TAB PO (09:26)
[2022-10-23] MEDS: pantoprazole DR 40 mg Tablet PO (09:26)
[2022-10-23] MEDS: aspirin 81 mg EC Tablet PO (09:26)
[2022-10-23] MEDS: losartan 50 mg Tablet PO (09:26)
[2022-10-23] MEDS: montelukast sodium 10 mg Tablet PO (09:26)
[2022-10-23] MEDS: escitalopram 10 mg Tablet PO (09:27)
[2022-10-23] MEDS: oxyCODONE 5 mg IR Tab/Cap PO (10:15)
--- NOTE | 2022-10-23 10:31 | PM.PN ---
Subjective Subjective: Patient is medically cleared to be transferred I would not change any of his medications today Mendez catheter has been removed COVID-negative No signs of confusion or agitation Antidepressant started Vitals/I&O/Wt Last Vital Signs Temp 98.4 F 10/23/22 07:28 Pulse 65 10/23/22 07:28 Resp 18 10/23/22 10:15 BP 167/81 10/23/22 09:26 Pulse Ox 94 10/23/22 07:28 O2 Del Method 10/23/22 07:28 O2 Flow Rate 2 10/21/22 03:00 FiO2 30 10/20/22 18:00 10/22/22 10/23/22 10/23/22 22:59 06:59 14:59 Intake Total 1080 / 1552 280 / 1832 Balance 1080 / 1552 280 / 1832 Weight last 48 hrs Weight 79.469 kg Weight 79.379 kg Physical Exam Narrative: Euvolemic Laying supine Doing well on room air Abdomen soft Nonfocal neuro exam No active suicidal or homicidal ideation Nonfocal neuro exam S1, S2 On 1:1supervision Urinary Catheter Management: Mendez: Cath Placed During This Visit: yes, but has since been removed by the nurse Reason for Continuing Indwelling Catheter: Decision to DC Catheter Urinary Catheter Date of Insertion: 10/19/22 Urinary Catheter Time of Insertion: 17:15 Date Urinary Catheter Removed: 10/22/22 Time Urinary Catheter Discontinued: 14:56 Data 10/21/22 02:41 10/21/22 02:41 A&P Assessment and plan (1) Partner relational problem: (2) Major depression: (3) Suicide ideation: (4) Suicide attempt by benzodiazepine overdose: Plan Patient is medically cleared to be transferred Will discharge once he is excepted Continue antidepressants Mendez catheter has been removed IV access could be removed before his discharge Full code Continue diet DVT prophylaxis on board Attestations Medical Necessity Statement*: Awaiting placement Coding Level of Care Code Acute Code for Chg Fwd Diagnoses Partner relational problem Z63.0 Major depression F32.9 Suicide ideation R45.851 Suicide attempt by benzodiazepine overdose T42.4X2A
--- NOTE | 2022-10-23 17:41 | PC.NURSE ---
Patient reports coreg makes him dizzy and he would like to talk to the doctor about discontinuing the medication
[2022-10-23] MEDS: enoxaparin 40 mg/0.4 mL Syringe SUBCUT (22:30)
[2022-10-24] VITALS (12 sets, daily range): BP systolic 125–186; BP diastolic 57–96; PULSE 61–76; RESP 16–20; TEMP 36.4–36.8; O2SAT 92–96
[2022-10-24] MEDS: oxyCODONE 5 mg IR Tab/Cap PO ×2 (01:19→23:47)
[2022-10-24] MEDS: amlodipine 5 mg Tablet PO (06:04)
--- NOTE | 2022-10-24 08:05 | PC.SOCIAL ---
IMM update pg 2 of IMM not updated w/ patient. Patient is currently on 96 hour hold. Awaiting [facility] placement.
--- NOTE | 2022-10-24 09:39 | P.PN_ITS ---
Subjective Subjective: Patient is awaiting placement Pleasant cooperative asked nurse to remove central line Vitals/I&O/Wt Last Vital Signs Temp 97.5 F L 10/24/22 08:00 Pulse 76 10/24/22 08:00 Resp 17 10/24/22 08:00 BP 186/96 10/24/22 08:00 Pulse Ox 95 10/24/22 08:00 O2 Del Method 10/24/22 08:00 O2 Flow Rate 2 10/23/22 08:00 FiO2 30 10/20/22 18:00 10/23/22 10/24/22 10/24/22 22:59 06:59 14:59 Intake Total 360 / 600 Balance 360 / 600 Weight last 48 hrs Weight 78.698 kg Weight 79.469 kg Physical Exam Narrative: Patient is awake and alert Pleasant and cooperative Nonfocal neuro exam As well as her Looks euvolemic PERRLA. Abdomen soft Urinary Catheter Management: Mendez: Cath Placed During This Visit: yes, but has since been removed by the nurse Reason for Continuing Indwelling Catheter: Decision to DC Catheter Urinary Catheter Date of Insertion: 10/19/22 Urinary Catheter Time of Insertion: 17:15 Date Urinary Catheter Removed: 10/22/22 Time Urinary Catheter Discontinued: 14:56 Data 10/21/22 02:41 10/21/22 02:41 A&P Assessment and plan (1) Partner relational problem: (2) Major depression: (3) Suicide ideation: (4) Suicide attempt by benzodiazepine overdose: (5) Acute alteration in mental status: Plan Patient is awaiting placement Suicidal attempt Hypertension currently on home antihypertensive regimen Central line to be removed Mendez catheter removed as well No signs of UTI, COVID-negative Most likely will be able to go by Tuesday to [facility] Patient was intubated when he was found obtunded for airway protection, he was extubated successfully to room air within 24 hours, since then he has been doing fine, speech therapy recommended., Patient endorsed suicidal attempt secondary to social stressors, Attestations Medical Necessity Statement*: Discharge likely tomorrow if gets accepted Time Spent in Patient Care: 30 Coding Level of Care Code Acute Code for Chg Fwd Diagnoses Partner relational problem Z63.0 Major depression F32.9 Suicide ideation R45.851 Suicide attempt by benzodiazepine overdose T42.4X2A Acute alteration in mental status R41.82
[2022-10-24] MEDS: isosorbide mononitrate ER 30 mg Tablet PO (09:41)
[2022-10-24] MEDS: ticagrelor 90 mg Tablet PO ×2 (09:41→18:00)
[2022-10-24] MEDS: aspirin 81 mg EC Tablet PO (09:42)
[2022-10-24] MEDS: sennosides-docusate Tablet 1 TAB PO (09:42)
[2022-10-24] MEDS: losartan 50 mg Tablet 100 MG PO (09:42)
[2022-10-24] MEDS: carvedilol 12.5 mg Tablet PO ×2 (09:42→18:00)
[2022-10-24] MEDS: escitalopram 10 mg Tablet PO (09:42)
[2022-10-24] MEDS: pantoprazole DR 40 mg Tablet PO (09:42)
[2022-10-24] MEDS: montelukast sodium 10 mg Tablet PO (09:42)
[2022-10-24] MEDS: enoxaparin 40 mg/0.4 mL Syringe SUBCUT (21:26)
[2022-10-25] VITALS (7 sets, daily range): BP systolic 108–165; BP diastolic 61–84; PULSE 59–66; RESP 15–16; TEMP 36.3–36.9; O2SAT 93–96
[2022-10-25] MEDS: amlodipine 5 mg Tablet PO (05:25)
--- NOTE | 2022-10-25 08:38 | P.DS_ITS ---
Discharge Providers Date of Admission: 10/19/22 20:20 Date of Discharge: October 25, 2022 Attending Provider at Admission: Cassie Huynh MD Attending Provider at Discharge: Alejandra Paez MD Diagnoses at Discharge Discharge Diagnosis (1) Partner relational problem: Status: Acute (2) Major depression: Status: Acute (3) Suicide ideation: Status: Resolved (4) Suicide attempt by benzodiazepine overdose: Status: Acute (5) Acute alteration in mental status: Status: Resolved Reason for Visit Reason for Visit: INTUBATED Hospital Course Hospital Course 72 male who was admitted to the ICU after suicide attempt, he took multiple doses of Klonopin he was found obtunded in the truck but EMS was called, he was intubated in the ER because of poor GCS and inability protect airways, he was extubated within 24 hours to room air, on awakening patient endorsed attempt to end his life however at the same time realized that this was not a farooq decision, psychiatrist recommended [facility] placement, antidepressants were initiated, he was put on 96-hour hold, he remained hemodynamically stable, tolerating diet, for his hypertension he has been getting his home regimen. COVID-negative, no signs of UTI, he has remained hemodynamically stable, no signs of encephalopathy. No active homicidal or suicidal ideations. Transfererd to [facility] Physical Exam Narrative: Awake alert Nonfocal neuro exam Doing well Right IJ line removed Mendez catheter removed Abdomen soft Pleasant cooperative Urinary Catheter Management: Mendez: Cath Placed During This Visit: yes, but has since been removed by the nurse Reason for Continuing Indwelling Catheter: Decision to DC Catheter Urinary Catheter Date of Insertion: 10/19/22 Urinary Catheter Time of Insertion: 17:15 Date Urinary Catheter Removed: 10/22/22 Time Urinary Catheter Discontinued: 14:56 Discharge Data Studies Completed and Pending Completed Studies During Hospitalization Category Date Time Status CT head wo con* [id number] Stat Cat Scan 10/19/22 16:38 Completed XR chest 1V portable [id number] Routine Exams 10/21/22 09:53 Completed XR chest 1V portable [id number] Stat Exams 10/19/22 16:36 Completed XR chest 1V portable [id number] Stat Exams 10/19/22 17:19 Completed XR chest 1V portable [id number] Stat Exams 10/19/22 18:42 Completed XR chest 1V portable [id number] Stat Exams 10/19/22 20:43 Completed CV. echo complete* [id number] Routine Ultrasound 10/20/22 10:42 Completed Radiology Impressions Head CT 10/19/22 16:38 IMPRESSION: 1. No acute intracranial abnormality. 2. 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 Chest X-Ray 10/21/22 09:53 IMPRESSION: 1. Mild cardiac enlargement. No acute process noted. 2. Right-sided IJ catheter in satisfactory position. 3. No acute infiltrate or other significant finding. Laboratory Results WBC 8.9 10^3/uL (4.0-10.0) 10/21/22 02:41 RBC 4.23 10^6/uL (4.1-5.3) 10/21/22 02:41 Hgb 12.3 g/dL (11.7-16.6) 10/21/22 02:41 Hct 39.6 % (42.0-52.0) L 10/21/22 02:41 MCV 93.6 fl (80-94) 10/21/22 02:41 MCH 29.1 pg (28.0-34.0) 10/21/22 02:41 MCHC 31.1 g/dL (30.0-36.0) 10/21/22 02:41 RDW 14.8 % (12.1-15.1) 10/21/22 02:41 Plt Count 174 10^3/cmm (130-400) 10/21/22 02:41 MPV 11.2 fL (7.4-10.4) H 10/21/22 02:41 Neut % (Auto) 74.1 % 10/21/22 02:41 Lymph % (Auto) 12.9 % 10/21/22 02:41 Mckenzie % (Auto) 10.6 % 10/21/22 02:41 Eos % (Auto) 1.5 % 10/21/22 02:41 Baso % (Auto) 0.3 % 10/21/22 02:41 Neut # (Auto) 6.60 10^3/uL (1.8-7.7) 10/21/22 02:41 Lymph # (Auto) 1.2 10^3/uL (0.8-4.8) 10/21/22 02:41 Mckenzie # (Auto) 0.9 10^3/uL (0.2-0.9) 10/21/22 02:41 Eos # (Auto) 0.1 10^3/uL (0.0-0.8) 10/21/22 02:41 Baso # (Auto) 0.0 10^3/uL (0.0-0.1) 10/21/22 02:41 Nucleated RBC % (auto) 0 % 10/21/22 02:41 Nucleated RBCs # 0.0 /100WBC 10/21/22 02:41 D-Dimer 0.99 ug/mIFEU (0-0.59) H 10/20/22 11:19 Specimen Type Arterial 10/20/22 04:35 Sample Site Brachial, right 10/20/22 04:35 ABG pH 7.43 (7.35-7.45) 10/20/22 04:35 ABG pCO2 36.1 mmHg (35-45) 10/20/22 04:35 ABG pO2 95.8 mmHg (80.0-100.0) 10/20/22 04:35 ABG HCO3 23.9 mmol/L (22-26) 10/20/22 04:35 ABG O2 Saturation 97.1 10/20/22 04:35 ABG Base Excess -0.1 mmol/L (-2.0-2.0) 10/20/22 04:35 Devon Test N/a 10/20/22 04:35 A-a O2 Gradient 9.0 mmHg (5-10) 10/20/22 04:35 Hematocrit 43.8 % (42-52) 10/20/22 04:35 Hgb O2 Saturation 96.3 % (95-100) 10/20/22 04:35 Carboxyhemoglobin 0.0 %THgb (0.4-20.1) L 10/20/22 04:35 Methemoglobin 0.8 % (0.4-1.5) 10/20/22 04:35 Total Hemoglobin 14.3 g/dL (14-18) 10/20/22 04:35 Sodium 141.0 mmol/L (131-143) 10/20/22 04:35 Potassium 3.4 mmol/L (3.5-5.0) L 10/20/22 04:35 Glucose 105.0 mg/dL (70-115) 10/20/22 04:35 Ionized Calcium 1.2 mmol/L (1.1-1.4) 10/20/22 04:35 O2 Delivery Device Vent 10/20/22 04:35 FiO2 30.0 % 10/20/22 04:35 Tidal Volume 0.45 10/20/22 04:35 PEEP 5.0 cmH20 10/20/22 04:35 Hydraulic Punch Press Operator ID Clement 10/20/22 04:35 Sodium 142 mmol/L (136-145) 10/21/22 02:41 Potassium 3.5 mmol/L (3.5-5.1) 10/21/22 02:41 Chloride 107 mmol/L (98-107) 10/21/22 02:41 Carbon Dioxide 24 mmol/L (22-29) 10/21/22 02:41 Anion Gap 14.5 (5-19) 10/21/22 02:41 BUN 15 mg/dL (8-23) 10/21/22 02:41 Creatinine 1.0 mg/dL (0.7-1.2) 10/21/22 02:41 GFR Calculation 73.9 mL/min (90-130) L 10/21/22 02:41 Glucose 78 mg/dL (65-115) 10/21/22 02:41 POC Glucose 90 mg/dL (70-110) 10/19/22 20:41 Calculated Osmolality 294 mOsm/kg (285-295) 10/21/22 02:41 Calcium 8.3 mg/dL (8.5-10.5) L 10/21/22 02:41 Magnesium 2.0 mg/dL (1.7-2.3) 10/19/22 17:30 Total Bilirubin 0.5 mg/dL (0.15-1.2) 10/21/22 02:41 AST 21 U/L (0-40) 10/21/22 02:41 ALT 20 U/L (0-41) 10/21/22 02:41 Alkaline Phosphatase 45 U/L (40-130) 10/21/22 02:41 Troponin T Baseline 12 ng/L (0-15) 10/19/22 17:30 Troponin T 120 Minute 11.16 ng/L (0-15) 10/19/22 19:25 Delta Troponin T -0.84 ABS# (0-10) L 10/19/22 19:25 Troponin T Hi Sens 6Hr 12.10 ng/L (0-15) 10/19/22 23:30 Troponin T Hi Sens 6Hr Delta 0.10 ng/L (0-12) 10/19/22 23:30 NT-Pro-B Natriuret Pep 272 pg/mL (0-125) H 10/19/22 17:30 Total Protein 6.1 g/dL (6.6-8.7) L 10/21/22 02:41 Albumin 3.5 g/dL (3.5-5.2) 10/21/22 02:41 Globulin 2.6 g/dL (1.3-4.6) 10/21/22 02:41 Vitamin B12 972 pg/mL (232-1245) 10/20/22 11:19 TSH 0.57 uIU/mL (0.27-4.20) 10/21/22 02:41 Urine Color Yellow (Yellow) 10/22/22 11:40 Urine Appearance Clear (CLEAR) 10/22/22 11:40 Urine pH 6 (5-7) 10/22/22 11:40 Ur Specific [place] 1.030 (1.005-1.030) 10/22/22 11:40 Urine Protein 1+ (Negative) H 10/22/22 11:40 Urine Glucose (UA) Norm (Normal) 10/22/22 11:40 Urine Ketones 1+ (Negative) H 10/22/22 11:40 Urine Blood 3+ (Negative) H 10/22/22 11:40 Urine Nitrate Negative (Negative) 10/22/22 11:40 Urine Bilirubin 1+ (Negative) H 10/22/22 11:40 Urine Urobilinogen 4 mg/dL (Negative) H 10/22/22 11:40 Ur Leukocyte Esterase Negative (Negative) 10/22/22 11:40 Urine RBC 10-15 /hpf (0-2) H 10/22/22 11:40 Urine WBC None /hpf (0-5) 10/22/22 11:40 Ur Squamous Epith Cells None /hpf (0-5) 10/22/22 11:40 Uric Acid Crystals 25-40 /hpf H 10/22/22 11:40 Amorphous Sediment Not Reportable 10/22/22 11:40 Urine Bacteria None /hpf (NONE) 10/22/22 11:40 Urine Mucus Trace /hpf 10/19/22 18:16 Salicylates < 0.3 mg/dL (3-10) L 10/19/22 17:30 Urine Opiates Screen Negative ng/mL (Negative) 10/19/22 18:16 Acetaminophen < 5.0 ug/mL (10-30) L 10/19/22 17:30 Ur Barbiturates Screen Negative ng/mL (Negative) 10/19/22 18:16 Ur Phencyclidine Scrn Negative ng/mL (Negative) 10/19/22 18:16 Ur Amphetamines Screen Negative ng/mL (Negative) 10/19/22 18:16 U Benzodiazepines Scrn Negative ng/mL (Negative) 10/19/22 18:16 Urine Cocaine Screen Negative ng/mL (Negative) 10/19/22 18:16 U Marijuana (THC) Screen Negative ng/mL (Negative) 10/19/22 18:16 Ethyl Alcohol < 10 mg/dL (0-10) 10/19/22 17:30 SARS-CoV-2 Ag (Rapid) negative (Negative) 10/22/22 11:10 Vitals Last Vital Signs Temp 97.5 F L 10/25/22 08:00 Pulse 61 10/25/22 08:00 Resp 16 10/25/22 08:00 BP 165/84 10/25/22 08:00 Pulse Ox 96 10/25/22 08:00 O2 Del Method 10/25/22 08:00 O2 Flow Rate 2 10/24/22 08:00 FiO2 30 10/20/22 18:00 Discharge Plan Discharge Patient Disposition: Home Condition: Stable Prescriptions: New carvedilol 12.5 mg Tablet 12.5 mg PO BID 30 Days Qty: 60 1RF trazodone 50 mg Tablet 50 mg PO BEDTIME PRN (Reason: Sleep) 30 Days Qty: 30 1RF escitalopram oxalate 10 mg Tablet 10 mg PO DAILY 30 Days Qty: 30 1RF Continued omeprazole 20 mg tablet,delayed release (DR/EC) 20 mg PO DAILY 90 Days Qty: 90 1RF meloxicam 15 mg tablet 15 mg PO DAILY 90 Days Qty: 90 1RF albuterol sulfate 2.5 mg /3 mL (0.083 %) solution for nebulization 2.5 mg inhalation Q4H PRN (Reason: shortness of breath or wheezing) Qty: 180 5RF cranberry 400 mg capsule 400 mg PO DAILY Rx Instructions: administer with a meal aspirin [Adult Low Dose Aspirin] 81 mg tablet,delayed release (DR/EC) 81 mg PO DAILY ibuprofen 200 mg tablet 200 mg PO Q6H PRN (Reason: Pain) diphenhydramine HCl [Allergy Relief(diphenhydramin)] 25 mg tablet 25 mg PO TID PRN (Reason: unknown) isosorbide mononitrate 30 mg tablet extended release 24 hr 30 mg PO DAILY Qty: 90 3RF rosuvastatin 40 mg tablet 40 mg PO DAILY Qty: 90 3RF valsartan 160 mg tablet 160 mg PO DAILY Qty: 90 3RF docusate sodium 100 mg capsule 100 mg PO DAILY vitamin B complex [B Complex-Vitamin B12] Tablet 1 tab PO DAILY albuterol sulfate [ProAir HFA] 90 mcg/actuation HFA aerosol inhaler 2 puff inhalation Q6H PRN (Reason: shortness of breath or wheezing) Qty: 8.5 5RF fluticasone propion-salmeterol [Advair Diskus] 500-50 mcg/dose blister with device 1 inh inhalation BID Qty: 60 3RF gabapentin 300 mg capsule 300 mg PO TID 30 Days Qty: 90 5RF nitroglycerin 0.4 mg tablet, sublingual 0.4 mg sublingual Q5M PRN (Reason: chest pain) Qty: 30 0RF Rx Instructions: do not exceed 3 doses per episode montelukast [Singulair] 10 mg tablet 10 mg PO DAILY Qty: 30 3RF Incruse Ellipta 62.5 mcg/actuation blister with device 1 inh inhalation DAILY Qty: 30 5RF Brilinta 90 mg tablet 90 mg PO BID Qty: 180 3RF acyclovir 400 mg tablet 400 mg PO BID Rx Instructions: rx filled 09/10/22 30d/s acyclovir 5 % ointment 1 applic TOPICAL BID PRN (Reason: unknown) amlodipine 5 mg tablet 5 mg PO QAM 30 Days Qty: 30 1RF Discontinued carvedilol 6.25 mg tablet 9.375 mg PO BID Discharge Orders: Discharge Order (Routine); Ordered 11/01/22 Ordered By: Chris Narayanan Referrals: [facility] [Outside] - 11/08/22 8:30 am Discharge Diet: As Directed Discharge Activity: Resume usual activity Patient Instructions: Depression, Suicide Prevention (DC), Opioid Safety Discharge Attestations Time Spent in Discharge Care*: less than 30 min Quality Metrics Clinical Quality Measures [ No reported AMI, CVA or VTE this stay] Coding Level of Care Code Acute Chg FW DC note Diagnoses Partner relational problem Z63.0 Major depression F32.9 Suicide ideation R45.851 Suicide attempt by benzodiazepine overdose T42.4X2A Acute alteration in mental status R41.82
[2022-10-25] MEDS: pantoprazole DR 40 mg Tablet PO (08:48)
[2022-10-25] MEDS: escitalopram 10 mg Tablet PO (08:48)
[2022-10-25] MEDS: isosorbide mononitrate ER 30 mg Tablet PO (08:49)
[2022-10-25] MEDS: losartan 50 mg Tablet 100 MG PO (08:49)
[2022-10-25] MEDS: ticagrelor 90 mg Tablet PO ×2 (08:49→17:24)
[2022-10-25] MEDS: aspirin 81 mg EC Tablet PO (08:50)
[2022-10-25] MEDS: montelukast sodium 10 mg Tablet PO (08:50)
[2022-10-25] MEDS: sennosides-docusate Tablet 1 TAB PO (08:50)
--- NOTE | 2022-10-25 10:47 | PM.PN ---
Subjective Subjective: Seen this morning. Patient sitting up on the edge of bed eating breakfast. Central line still in place. We have ordered to remove that today. Patient also states he does not want to take his carvedilol as it makes him feel weird. He states he will take all other medications except that 1. He also complains of a sore on his back and is requesting for some cream. He states he has not used that cream in a while. Due to patient's position in him eating breakfast unable to examine at this time. Vitals/I&O/Wt Last Vital Signs Temp 97.5 F L 10/25/22 08:00 Pulse 66 10/25/22 10:31 Resp 16 10/25/22 10:31 BP 165/84 10/25/22 08:49 Pulse Ox 94 10/25/22 10:31 O2 Del Method 10/25/22 10:31 O2 Flow Rate 2 10/25/22 08:00 FiO2 30 10/20/22 18:00 10/24/22 10/25/22 10/25/22 22:59 06:59 14:59 Intake Total 240 / 960 240 / 1200 240 / 240 Balance 240 / 960 240 / 1200 240 / 240 Weight last 48 hrs Weight 78.698 kg Weight 78.698 kg Physical Exam Narrative: Awake alert Nonfocal neuro exam Doing well Right IJ line still in place. We will remove that today. Mendez catheter removed Abdomen soft Pleasant cooperative Lungs clear to auscultation bilaterally diminished at bases. Urinary Catheter Management: Mendez: Cath Placed During This Visit: yes, but has since been removed by the nurse Reason for Continuing Indwelling Catheter: Decision to DC Catheter Urinary Catheter Date of Insertion: 10/19/22 Urinary Catheter Time of Insertion: 17:15 Date Urinary Catheter Removed: 10/22/22 Time Urinary Catheter Discontinued: 14:56 Data 10/21/22 02:41 10/21/22 02:41 Micro: Microbiology 10/19/22 19:00 Blood Culture - Final Blood NO GROWTH AFTER 5 DAYS 10/19/22 17:44 Blood Culture - Final Blood NO GROWTH AFTER 5 DAYS A&P Assessment and plan (1) Partner relational problem: (2) Major depression: (3) Suicide ideation: (4) Suicide attempt by benzodiazepine overdose: (5) Acute alteration in mental status: Plan Patient is awaiting placement Suicidal attempt Hypertension currently on home antihypertensive regimen Central line to be removed Mendez catheter removed as well No signs of UTI, COVID-negative Patient is pending placement to [facility] at this time. Bed not available. Plan for today: Remove central line Will hold carvedilol as patient is refusing to take it. Examined patient's back and treat accordingly. It seems patient may have a pressure sore?. Patient was intubated when he was found obtunded for airway protection, he was extubated successfully to room air within 24 hours, since then he has been doing fine, speech therapy recommended., Patient endorsed suicidal attempt secondary to social stressors, Attestations Medical Necessity Statement*: Discharge to [facility] once accepted and bed available. Time Spent in Patient Care: 30 Coding Level of Care Code Acute Code for Chg Fwd Diagnoses Partner relational problem Z63.0 Major depression F32.9 Suicide ideation R45.851 Suicide attempt by benzodiazepine overdose T42.4X2A Acute alteration in mental status R41.82
[2022-10-25] MEDS: enoxaparin 40 mg/0.4 mL Syringe SUBCUT (21:29)
[2022-10-26] VITALS (8 sets, daily range): BP systolic 111–136; BP diastolic 57–72; PULSE 61–84; RESP 15–18; TEMP 36.3–36.6; O2SAT 93–96
[2022-10-26] MEDS: amlodipine 5 mg Tablet PO (05:31)
[2022-10-26] MEDS: isosorbide mononitrate ER 30 mg Tablet PO (09:50)
[2022-10-26] MEDS: ticagrelor 90 mg Tablet PO ×2 (09:50→17:27)
[2022-10-26] MEDS: sennosides-docusate Tablet 1 TAB PO (09:50)
[2022-10-26] MEDS: carvedilol 12.5 mg Tablet PO ×2 (09:50→17:27)
[2022-10-26] MEDS: aspirin 81 mg EC Tablet PO (09:50)
[2022-10-26] MEDS: montelukast sodium 10 mg Tablet PO (09:50)
[2022-10-26] MEDS: losartan 50 mg Tablet 100 MG PO (09:50)
[2022-10-26] MEDS: escitalopram 10 mg Tablet PO (09:50)
[2022-10-26] MEDS: pantoprazole DR 40 mg Tablet PO (09:51)
--- NOTE | 2022-10-26 10:35 | PC.NURSE ---
This nurse received report from NINA Camarillo @10:30.
--- NOTE | 2022-10-26 12:45 | PM.PN ---
Subjective Subjective: Seen this morning. Patient was agitated and wanting to know what his plan is and when he will get to go from this hospital. I also spoke with his significant other over the phone and explained what was going on. Patient complained of some irritation on his right buttock which was examined by myself and the nurse at bedside. Vitals/I&O/Wt Last Vital Signs Temp 97.9 F 10/26/22 04:00 Pulse 84 10/26/22 07:31 Resp 16 10/26/22 07:31 BP 136/72 10/26/22 09:50 Pulse Ox 96 10/26/22 07:31 O2 Del Method 10/26/22 07:31 O2 Flow Rate 2 10/25/22 08:00 FiO2 30 10/20/22 18:00 10/25/22 10/26/22 10/26/22 22:59 06:59 14:59 Intake Total 240 / 600 360 / 960 Balance 240 / 600 360 / 960 Weight last 48 hrs Weight 76.799 kg Weight 78.698 kg Physical Exam Narrative: Awake alert Nonfocal neuro exam Doing well Mendez catheter removed Abdomen soft Pleasant cooperative Lungs clear to auscultation bilaterally diminished at bases. Right buttock area has a few scabs from what seems to be a previous shingles outbreak. No active lesions or draining wound. Urinary Catheter Management: Mendez: Cath Placed During This Visit: yes, but has since been removed by the nurse Reason for Continuing Indwelling Catheter: Decision to DC Catheter Urinary Catheter Date of Insertion: 10/19/22 Urinary Catheter Time of Insertion: 17:15 Date Urinary Catheter Removed: 10/22/22 Time Urinary Catheter Discontinued: 14:56 Data 10/21/22 02:41 10/21/22 02:41 A&P Assessment and plan (1) Partner relational problem: (2) Major depression: (3) Suicide ideation: (4) Suicide attempt by benzodiazepine overdose: (5) Acute alteration in mental status: Plan Patient is awaiting placement Suicidal attempt Hypertension currently on home antihypertensive regimen Central line to be removed Mendez catheter removed as well No signs of UTI, COVID-negative Patient is pending placement to [facility] at this time. Bed not available. Plan for today: Will hold carvedilol as patient is refusing to take it. We will order some hydrocortisone for itching around scab area on right buttock. Discussed with psychiatry. Will await for further recommendations. [facility] at [facility]. Patient was intubated when he was found obtunded for airway protection, he was extubated successfully to room air within 24 hours, since then he has been doing fine, speech therapy recommended., Patient endorsed suicidal attempt secondary to social stressors, Attestations Medical Necessity Statement*: Discharge to [facility] once accepted and bed available. Time Spent in Patient Care: 30 Coding Level of Care Code Acute Code for Chg Fwd Diagnoses Partner relational problem Z63.0 Major depression F32.9 Suicide ideation R45.851 Suicide attempt by benzodiazepine overdose T42.4X2A Acute alteration in mental status R41.82
[2022-10-26 15:18] LABS: Basophils # 0.1 10^3/uL (0.0-0.1); Basophils % 0.6 %; Eosinophils # 0.2 10^3/uL (0.0-0.8); Hemoglobin 13.3 g/dL (11.7-16.6); Lymphocytes # 1.1 10^3/uL (0.8-4.8); Lymphocytes % 11.2 %; Mean Corpuscular HGB Conc 30.2 g/dL (30.0-36.0); Mean Corpuscular Hemoglobin 29.4 pg (28.0-34.0); Mean Corpuscular Volume 97.3 fl (80-94); Mean Platelet Volume 11.1 fL (7.4-10.4); Monocytes # 0.9 10^3/uL (0.2-0.9); Monocytes % 8.7 %; Neutrophils % 76.8 %; Nucleated Red Blood Cells % 0 %; Platelet Count 268 10^3/cmm (130-400); Red Blood Count 4.52 10^6/uL (4.1-5.3); Red Cell Distribution Width 14.5 % (12.1-15.1); White Blood Count 9.9 10^3/uL (4.0-10.0)
--- NOTE | 2022-10-26 15:24 | W.PM.NPUPNS ---
Subjective NPU Subjective: Patient presented today wondering about his situation. We reviewed his situation and what we had discussed the last time he was seen by this rfp writer. Namely that he is a 72-year-old white male on his second suicide attempt in his life with intent. He needed to be intubated to provide respiratory support so that this did not end poorly. He lives at home alone and has limited supports. He acknowledges that this was a suicide attempt secondary to being angry and hurt by some sort of situation with a girl that he was very fond of. When asked about what he was going to do to make sure this does not happen again he continued to show resistance to looking at formal treatment. Saying I will go to therapy or talk to someone if I have to. He continued to be focused on being discharged more than how he was going to avoid this repeating only saying I promised that will not happen again. We discussed the fact that the way that we increase the likelihood that this does not happen is by appropriate treatment now followed by appropriate aftercare. After hearing this he acknowledges that this assessment was accurate and that this was probably best. Mental Status Exam MSE Comments: This is an obese older white male looking slightly younger than his stated age in hospital gown with limited grooming but improved eye contact. No abnormal movement except mild psychomotor retardation. Cooperative with exam in mild distress. Speech was slightly decreased rate and volume. Mood described as fine, affect subdued and tearful as we talked about the circumstances that led to the suicide attempt. Thought process organized. Thought content: Patient denied suicidal or homicidal ideation, there were no delusions reported noted, he denied any auditory or visualizations. Attention and concentration seemed appropriate and memory was mostly liable but not were formally tested. He is alert only x3. Insight fair and judgment limited and impulse control impaired. Vitals/I&O/Wt Last Vital Signs Temp 97.9 F 10/26/22 04:00 Pulse 61 10/26/22 12:00 Resp 18 10/26/22 12:00 BP 126/57 10/26/22 12:00 Pulse Ox 93 10/26/22 12:00 O2 Del Method 10/26/22 07:31 O2 Flow Rate 2 10/25/22 08:00 FiO2 30 10/20/22 18:00 10/26/22 10/26/22 10/26/22 06:59 14:59 22:59 Intake Total 360 / 960 240 / 240 Balance 360 / 960 240 / 240 Weight last 48 hrs Weight 76.799 kg Weight 78.698 kg Physical Exam Urinary Catheter Management: Mendez: Cath Placed During This Visit: yes, but has since been removed by the nurse Reason for Continuing Indwelling Catheter: Decision to DC Catheter Urinary Catheter Date of Insertion: 10/19/22 Urinary Catheter Time of Insertion: 17:15 Date Urinary Catheter Removed: 10/22/22 Time Urinary Catheter Discontinued: 14:56 Data NPU 10/26/22 15:00 10/21/22 02:41 A&P Assessment and plan (1) Suicide ideation: (2) Major depression: (3) Partner relational problem: Plan 72 year old white single male with recent overdose with suicidal intent with past history of treatment for depression and previous suicide attempt. The patient will require acute inpatient psychiatric hospitalization at geropsychiatry unit once stabilized. 1. Continue current medication. Agree with continuing Lexapro. 2. Given the circumstances that his history, psychiatric psychiatric inpatient stay will be appropriate and the standard care given his demographics and psychosocial history. He continues to be emotional when actually facing the circumstances that led to his overdose. 3. Agree with the 96-hour hold given his resistance inpatient to some degree. However he is improving in his insight and is aware that a short inpatient hospitalization to make sure that all things are managed to create a successful outpatient plan is appropriate at this time. Attestations NPU Medical Necessity Statement*: N/A. Please see primary team note for medical necessity however he will require acute psychiatric hospitalization. Coding Level of Care Code Acute Code for [facility] Fwd Diagnoses Suicide ideation R45.851 Major depression F32.9 Partner relational problem Z63.0
[2022-10-26 15:41] LABS: Alanine Aminotransferase 39 U/L (0-41); Albumin Level 4.1 g/dL (3.5-5.2); Alkaline Phosphatase 51 U/L (40-130); Anion Gap 14.8 (5-19); Aspartate Amino Transferase 30 U/L (0-40); Blood Urea Nitrogen 33 mg/dL (8-23); Calcium 9.4 mg/dL (8.5-10.5); Carbon Dioxide 26 mmol/L (22-29); Chloride 104 mmol/L (98-107); Globulin 3.3 g/dL (1.3-4.6); Glomerular Filtration Rate 59.9 mL/min (90-130); Glucose 107 mg/dL (65-115); Osmolality Calculated 300 mOsm/kg (285-295); Potassium 3.8 mmol/L (3.5-5.1); Sodium 141 mmol/L (136-145); Total Bilirubin 0.9 mg/dL (0.15-1.2); Total Protein 7.4 g/dL (6.6-8.7)
[2022-10-26 15:53] LABS: SARS Covid-2 Antigen negative (Negative)
[2022-10-26 15:56] LABS: Vitamin B12 986 pg/mL (232-1245)
[2022-10-26 16:00] LABS: Folate Level 14.8 ng/mL (4.5-32.2)
[2022-10-26] MEDS: diclofenac 1% Topical Gel 100 gm 1 APPLIC TOPICAL (20:14)
[2022-10-26] MEDS: enoxaparin 40 mg/0.4 mL Syringe SUBCUT (22:27)
[2022-10-27] VITALS (10 sets, daily range): BP systolic 115–139; BP diastolic 53–76; PULSE 55–97; RESP 14–18; TEMP 36.6–37.1; O2SAT 92–96
[2022-10-27] MEDS: amlodipine 5 mg Tablet PO (05:07)
[2022-10-27] MEDS: escitalopram 10 mg Tablet PO (09:56)
[2022-10-27] MEDS: montelukast sodium 10 mg Tablet PO (09:56)
[2022-10-27] MEDS: sennosides-docusate Tablet 1 TAB PO (09:56)
[2022-10-27] MEDS: pantoprazole DR 40 mg Tablet PO (09:56)
[2022-10-27] MEDS: isosorbide mononitrate ER 30 mg Tablet PO (09:57)
[2022-10-27] MEDS: aspirin 81 mg EC Tablet PO (09:57)
[2022-10-27] MEDS: ticagrelor 90 mg Tablet PO ×2 (09:57→17:56)
[2022-10-27] MEDS: carvedilol 12.5 mg Tablet PO ×2 (09:57→17:56)
[2022-10-27] MEDS: losartan 50 mg Tablet 100 MG PO (09:57)
--- NOTE | 2022-10-27 13:30 | PM.PN ---
Subjective Subjective: Seen this morning. Patient again achieved by RN. He is also about to get a haircut. He states he is much happier after speaking to psychiatrist yesterday. He is looking forward to going to [facility] Vitals/I&O/Wt Last Vital Signs Temp 97.9 F 10/27/22 08:00 Pulse 67 10/27/22 08:57 Resp 18 10/27/22 08:57 BP 116/65 10/27/22 09:57 Pulse Ox 96 10/27/22 08:57 O2 Del Method 10/27/22 08:57 O2 Flow Rate 2 10/25/22 08:00 FiO2 30 10/20/22 18:00 10/26/22 10/27/22 10/27/22 22:59 06:59 14:59 Intake Total 240 / 480 440 / 440 Output Total Balance 239 / 479 440 / 440 Weight last 48 hrs Weight 74.106 kg Weight 76.799 kg Physical Exam Narrative: Awake alert Nonfocal neuro exam Doing well Mendez catheter removed Abdomen soft Pleasant cooperative Lungs clear to auscultation bilaterally diminished at bases. Urinary Catheter Management: Mendez: Cath Placed During This Visit: yes, but has since been removed by the nurse Reason for Continuing Indwelling Catheter: Decision to DC Catheter Urinary Catheter Date of Insertion: 10/19/22 Urinary Catheter Time of Insertion: 17:15 Date Urinary Catheter Removed: 10/22/22 Time Urinary Catheter Discontinued: 14:56 Data 10/26/22 15:00 10/26/22 15:00 A&P Assessment and plan (1) Partner relational problem: (2) Major depression: (3) Suicide ideation: (4) Suicide attempt by benzodiazepine overdose: (5) Acute alteration in mental status: Plan Patient is awaiting placement Suicidal attempt Hypertension currently on home antihypertensive regimen Central line to be removed Mendez catheter removed as well No signs of UTI, COVID-negative Patient is pending placement to [facility] at this time. Bed not available. Plan for today: Will hold carvedilol as patient is refusing to take it. We will order some hydrocortisone for itching around scab area on right buttock. Discussed with psychiatry. Will await for further recommendations. Patient pending placement to [facility] at this time. Patient was intubated when he was found obtunded for airway protection, he was extubated successfully to room air within 24 hours, since then he has been doing fine, speech therapy recommended., Patient endorsed suicidal attempt secondary to social stressors, Attestations Medical Necessity Statement*: awaiting placement to [facility] Coding Level of Care Code Acute Code for [facility] Fwd Diagnoses Partner relational problem Z63.0 Major depression F32.9 Suicide ideation R45.851 Suicide attempt by benzodiazepine overdose T42.4X2A Acute alteration in mental status R41.82
[2022-10-27] MEDS: enoxaparin 40 mg/0.4 mL Syringe SUBCUT (21:03)
[2022-10-28] VITALS (8 sets, daily range): BP systolic 105–138; BP diastolic 61–72; PULSE 64–81; RESP 15–18; TEMP 36.5–37; O2SAT 93–96; BMI 28.3
--- NOTE | 2022-10-28 03:58 | PC.NURSE ---
At approx. 1999 Day hold papers served to the pt by chelsi betancourt, this nurse and security also present in the room at that time. Allowed pt to ask questions and he voiced understanding. Afterwards the pt became emotional and stated that he did not understand why he was not allowed to go home. Also stated I don't feel free to say what is in my heart because you will hold it against me . Pt ambulated in the [place] with sitter for a while afterwards, still calm and cooperative.
[2022-10-28] MEDS: amlodipine 5 mg Tablet PO (06:11)
[2022-10-28] MEDS: escitalopram 10 mg Tablet PO (09:57)
[2022-10-28] MEDS: isosorbide mononitrate ER 30 mg Tablet PO (09:57)
[2022-10-28] MEDS: aspirin 81 mg EC Tablet PO (09:57)
[2022-10-28] MEDS: montelukast sodium 10 mg Tablet PO (09:57)
[2022-10-28] MEDS: carvedilol 12.5 mg Tablet PO ×2 (09:57→19:32)
[2022-10-28] MEDS: sennosides-docusate Tablet 1 TAB PO (09:57)
[2022-10-28] MEDS: pantoprazole DR 40 mg Tablet PO (09:57)
[2022-10-28] MEDS: losartan 50 mg Tablet 100 MG PO (10:07)
[2022-10-28] MEDS: ticagrelor 90 mg Tablet PO ×2 (10:07→19:02)
--- NOTE | 2022-10-28 11:05 | PM.PN ---
Subjective Subjective: seen this am no acute events overnight pt on 21 day hold to go to NPU today Vitals/I&O/Wt Last Vital Signs Temp 98.2 F 10/28/22 08:00 Pulse 64 10/28/22 08:00 Resp 16 10/28/22 08:00 BP 132/72 10/28/22 10:07 Pulse Ox 94 10/28/22 08:00 O2 Del Method 10/28/22 08:00 O2 Flow Rate 2 10/25/22 08:00 FiO2 30 10/20/22 18:00 10/27/22 10/28/22 10/28/22 22:59 06:59 14:59 Intake Total 0 / 440 240 / 680 Balance 0 / 440 240 / 680 Weight last 48 hrs Weight 74.503 kg Weight 74.106 kg Physical Exam Narrative: Awake alert Nonfocal neuro exam Doing well Mendez catheter removed Abdomen soft Pleasant cooperative Lungs clear to auscultation bilaterally diminished at bases. Urinary Catheter Management: Mendez: Cath Placed During This Visit: yes, but has since been removed by the nurse Reason for Continuing Indwelling Catheter: Decision to DC Catheter Urinary Catheter Date of Insertion: 10/19/22 Urinary Catheter Time of Insertion: 17:15 Date Urinary Catheter Removed: 10/22/22 Time Urinary Catheter Discontinued: 14:56 Data 10/26/22 15:00 10/26/22 15:00 A&P Assessment and plan (1) Partner relational problem: (2) Major depression: (3) Suicide ideation: (4) Suicide attempt by benzodiazepine overdose: (5) Acute alteration in mental status: Plan Patient is awaiting placement Suicidal attempt Hypertension currently on home antihypertensive regimen Central line to be removed Mendez catheter removed as well No signs of UTI, COVID-negative Patient is pending placement to [facility] at this time. Bed not available. Plan for today: We will order some hydrocortisone for itching around scab area on right buttock. Discussed with psychiatry. Will await for further recommendations. Patient pending placement to [facility] at this time. Patient was intubated when he was found obtunded for airway protection, he was extubated successfully to room air within 24 hours, since then he has been doing fine, speech therapy recommended., Patient endorsed suicidal attempt secondary to social stressors, Transfer to NPU today. Medicine will sign off. Attestations Medical Necessity Statement*: awaiting placement to [facility] Coding Level of Care Code Acute Code for [facility] Fwd History Problem Focused Exam Problem Focused Medical Decision Making Straight Forward Diagnoses Partner relational problem Z63.0 Major depression F32.9 Suicide ideation R45.851 Suicide attempt by benzodiazepine overdose T42.4X2A Acute alteration in mental status R41.82 Time Spent (min) 15
[2022-10-28 11:30] LABS: RPR w(Moniotor) w/REFL Titer NON-REACTIVE (NON-REACTIVE)
--- NOTE | 2022-10-28 12:40 | PC.NURSE ---
Walked patient to NPU and Gave report to Charissa. Took all belongings with patient
--- NOTE | 2022-10-28 13:08 | W.PM.NPUPNS ---
Subjective NPU Subjective: Patient presented today reporting that he was appreciative of us taking him on the unit and not making wait any longer for a geriatric facility. We discussed our plan which is to focus on getting home connected with outpatient services in his area for his return home. Additionally we will perform a MARIO to ensure there are no occult issues as well as a formal MMSE. He is agreeable to that. We discussed the 21-day hold and the requisite intervention given his resistance to hospitalization after a suicide attempt. However we discussed the possibility of his being a fairly short stay and the possibility of the hearing never coming into play. Mental Status Exam MSE Comments: This is an obese older white male looking slightly younger than his stated age in hospital gown with limited grooming but improved eye contact. No abnormal movement except mild psychomotor retardation. Cooperative with exam in mild distress. Speech was slightly decreased rate and volume. Mood described as fine, affect subdued and tearful as we talked about the circumstances that led to the suicide attempt. Thought process organized. Thought content: Patient denied suicidal or homicidal ideation, there were no delusions reported noted, he denied any auditory or visualizations. Attention and concentration seemed appropriate and memory was mostly liable but not were formally tested. He is alert only x3. Insight fair and judgment limited and impulse control impaired. Vitals/I&O/Wt Last Vital Signs Temp 98.6 F 10/28/22 20:50 Pulse 69 10/28/22 20:50 Resp 17 10/28/22 20:50 BP 105/61 10/28/22 20:50 Pulse Ox 94 10/28/22 20:50 O2 Del Method 10/28/22 20:50 O2 Flow Rate 2 10/25/22 08:00 FiO2 30 10/20/22 18:00 Weight last 48 hrs Weight 75.024 kg Weight 74.503 kg Physical Exam Urinary Catheter Management: Mendez: Cath Placed During This Visit: yes, but has since been removed by the nurse Reason for Continuing Indwelling Catheter: Decision to DC Catheter Urinary Catheter Date of Insertion: 10/19/22 Urinary Catheter Time of Insertion: 17:15 Date Urinary Catheter Removed: 10/22/22 Time Urinary Catheter Discontinued: 14:56 Data NPU 10/26/22 15:00 10/26/22 15:00 A&P Assessment and plan (1) Suicide ideation: (2) Major depression: (3) Partner relational problem: Plan 72 year old white single male with recent overdose with suicidal intent with past history of treatment for depression and previous suicide attempt. The patient will require acute inpatient psychiatric hospitalization at geropsychiatry unit once stabilized. 1. Continue current medication. Agree with continuing Lexapro. 2. Given the circumstances that his history, geriatric psychiatric inpatient stay will be appropriate and the standard care given his demographics and psychosocial history. He continues to be emotional when actually facing the circumstances that led to his overdose. Given the logistics of getting him to a geriatric facility and his overall reasonable health we will admit him to the adult unit here at [facility]. 3. A 21-day hold paperwork was submitted. 4. Continue 15-minute checks for safety. 5. Encourage individual, group milieu therapy. 6. Work with social work team to ensure proper follow-up given his risk medication for future suicidal behavior. Attestations NPU Medical Necessity Statement*: Inpatient psychiatric hospitalization is medically necessary and the clinically appropriate intervention at this time. We will monitor/initiate medications and make changes as indicated. He will be in the hospital for over 2 midnights. Likely to stay 3 to 5 days. Coding Level of Care Code Acute Code for [facility] Fwd Diagnoses Suicide ideation R45.851 Major depression F32.9 Partner relational problem Z63.0
[2022-10-28] MEDS: diclofenac 1% Topical Gel 100 gm 1 APPLIC TOPICAL (20:52)
[2022-10-29 08:52] VITALS: BP 117/75
[2022-10-29] MEDS: losartan 50 mg Tablet 100 MG PO (08:52)
[2022-10-29] MEDS: montelukast sodium 10 mg Tablet PO (08:54)
[2022-10-29] MEDS: carvedilol 12.5 mg Tablet PO ×2 (08:54→17:02)
[2022-10-29] MEDS: isosorbide mononitrate ER 30 mg Tablet PO (08:54)
[2022-10-29] MEDS: aspirin 81 mg EC Tablet PO (08:54)
[2022-10-29] MEDS: sennosides-docusate Tablet 1 TAB PO (08:55)
[2022-10-29] MEDS: pantoprazole DR 40 mg Tablet PO (08:55)
[2022-10-29] MEDS: amlodipine 5 mg Tablet PO (08:55)
[2022-10-29] MEDS: escitalopram 10 mg Tablet PO (08:55)
[2022-10-29] MEDS: ticagrelor 90 mg Tablet PO ×2 (08:55→17:02)
[2022-10-29 13:46] VITALS: BP 109/63; PULSE 63; RESP 18; TEMP 36.6; O2SAT 95
--- NOTE | 2022-10-29 13:46 | W.PM.NPUPNS ---
Subjective NPU Subjective: Patient presented today reporting that he is going to go to the hearing because his quality assurance project manager has advised him to do so. He reports that he does not understand these commitment proceedings and so he is going to take the quality assurance project manager's advice. I discussed with him the fact that we seem to have found appropriate follow-up and that looking at his situation and the likely discharge will be on Tuesday and he was agreeable to that but felt very uneasy about not doing exactly what the quality assurance project manager suggests. We discussed the hearing process and some of the things that I would say. Mental Status Exam MSE Comments: This is an obese older white male looking slightly younger than his stated age in hospital gown with limited grooming but improved eye contact. No abnormal movement except mild psychomotor retardation. Cooperative with exam in mild distress. Speech was slightly decreased rate and volume. Mood described as fine, affect subdued and tearful as we talked about the circumstances that led to the suicide attempt. Thought process organized. Thought content: Patient denied suicidal or homicidal ideation, there were no delusions reported noted, he denied any auditory or visualizations. Attention and concentration seemed appropriate and memory was mostly liable but not were formally tested. He is alert only x3. Insight fair and judgment limited and impulse control impaired. Vitals/I&O/Wt Last Vital Signs Temp 98 F 10/29/22 13:46 Pulse 63 10/29/22 13:46 Resp 18 10/29/22 13:46 BP 109/63 10/29/22 13:46 Pulse Ox 95 10/29/22 13:46 O2 Del Method 10/29/22 13:46 O2 Flow Rate 2 10/29/22 08:00 FiO2 30 10/20/22 18:00 Weight last 48 hrs Weight 75.387 kg Weight 75.024 kg Physical Exam Urinary Catheter Management: Mendez: Cath Placed During This Visit: yes, but has since been removed by the nurse Reason for Continuing Indwelling Catheter: Decision to DC Catheter Urinary Catheter Date of Insertion: 10/19/22 Urinary Catheter Time of Insertion: 17:15 Date Urinary Catheter Removed: 10/22/22 Time Urinary Catheter Discontinued: 14:56 Data NPU 10/26/22 15:00 10/26/22 15:00 A&P Assessment and plan (1) Suicide ideation: (2) Major depression: (3) Partner relational problem: Plan 72 year old white single male with recent overdose with suicidal intent with past history of treatment for depression and previous suicide attempt. The patient will require acute inpatient psychiatric hospitalization at geropsychiatry unit once stabilized. 1. Continue current medication. Agree with continuing Lexapro. 2. Given the circumstances that his history, geriatric psychiatric inpatient stay will be appropriate and the standard care given his demographics and psychosocial history. He continues to be emotional when actually facing the circumstances that led to his overdose. Given the logistics of getting him to a geriatric facility and his overall reasonable health we will admit him to the adult unit here at [facility]. 3. A 21-day hold paperwork was submitted. 4. Continue 15-minute checks for safety. 5. Encourage individual, group milieu therapy. 6. Work with social work team to ensure proper follow-up given his risk medication for future suicidal behavior. We will administer an MMSE and ask PT/OT to complete a MARIO prior to discharge. Attestations NPU Medical Necessity Statement*: Inpatient psychiatric hospitalization is medically necessary and the clinically appropriate intervention at this time. We will monitor/initiate medications and make changes as indicated. Likely to stay 2-4 days. Coding Level of Care Code Acute Code for [facility] Fwd Diagnoses Suicide ideation R45.851 Major depression F32.9 Partner relational problem Z63.0
[2022-10-29] MEDS: hydrocortisone 1% cream 28 gm 1 APPLIC TOPICAL ×2 (14:02→21:26)
--- NOTE | 2022-10-29 16:09 | PC.NURSE ---
1530 Pt was escorted off the unit with officers of the law to attend [address]
--- NOTE | 2022-10-29 17:00 | PC.NURSE ---
Returned from court at present;escorted by injection molding machine tender. No c/o pain or discomfort.
[2022-10-30 05:51] VITALS: RESP 18
[2022-10-30] MEDS: amlodipine 5 mg Tablet PO (08:55)
[2022-10-30] MEDS: aspirin 81 mg EC Tablet PO (08:55)
[2022-10-30] MEDS: sennosides-docusate Tablet 1 TAB PO (08:55)
[2022-10-30] MEDS: escitalopram 10 mg Tablet PO (08:55)
[2022-10-30] MEDS: isosorbide mononitrate ER 30 mg Tablet PO (08:55)
[2022-10-30] MEDS: montelukast sodium 10 mg Tablet PO (08:56)
[2022-10-30] MEDS: carvedilol 12.5 mg Tablet PO ×2 (08:56→17:08)
[2022-10-30] MEDS: losartan 50 mg Tablet 100 MG PO (08:56)
[2022-10-30] MEDS: pantoprazole DR 40 mg Tablet PO (08:59)
[2022-10-30] MEDS: ticagrelor 90 mg Tablet PO ×2 (08:59→17:08)
[2022-10-30] MEDS: diclofenac 1% Topical Gel 100 gm 1 APPLIC TOPICAL (09:48)
--- NOTE | 2022-10-30 12:40 | W.PM.NPUPNS ---
Subjective NPU Subjective: Patient presented today reporting that he feels like he is going to be fine. It was important for him to establish that there were no hard feelings from the court case which we discussed that there were not. We discussed the fact that it was our plan still to make sure everything was in place for Tuesday as far as follow-up and that we would work with the treatment team to make sure that we had appointments and that he had access to medication and any other needs to improve his chances for success once he is discharged. Mental Status Exam MSE Comments: This is an obese older white male looking slightly younger than his stated age in hospital gown with limited grooming but improved eye contact. No abnormal movement except mild psychomotor retardation. Cooperative with exam in no acute distress distress. Speech was slightly decreased rate and volume. Mood described as I think I am ready to go, affect somewhat brighter. Thought process organized. Thought content: Patient denied suicidal or homicidal ideation, there were no delusions reported noted, he denied any auditory or visual hallucinations. Attention and concentration seemed appropriate and memory was mostly reliable but not were formally tested. He is alert only x3. Insight fair and judgment limited and impulse control appropriate on the unit but concerns for after discharge. Vitals/I&O/Wt Last Vital Signs Temp 98 F 10/29/22 13:46 Pulse 63 10/29/22 13:46 Resp 18 10/30/22 05:51 BP 109/63 10/29/22 13:46 Pulse Ox 95 10/29/22 13:46 O2 Del Method 10/29/22 13:46 O2 Flow Rate 2 10/30/22 08:00 FiO2 30 10/20/22 18:00 10/29/22 10/30/22 10/30/22 22:59 06:59 14:59 Intake Total 290 / 290 Output Total 351 / 351 Balance -61 / -61 Weight last 48 hrs Weight 75.387 kg Weight 75.024 kg Physical Exam Urinary Catheter Management: Mendez: Cath Placed During This Visit: yes, but has since been removed by the nurse Reason for Continuing Indwelling Catheter: Decision to DC Catheter Urinary Catheter Date of Insertion: 10/19/22 Urinary Catheter Time of Insertion: 17:15 Date Urinary Catheter Removed: 10/22/22 Time Urinary Catheter Discontinued: 14:56 Data NPU 10/26/22 15:00 10/26/22 15:00 A&P Assessment and plan (1) Suicide ideation: (2) Major depression: (3) Partner relational problem: Plan 72 year old white single male with recent overdose with suicidal intent with past history of treatment for depression and previous suicide attempt. The patient will require acute inpatient psychiatric hospitalization at geropsychiatry unit once stabilized. 1. Continue current medication. Agree with continuing Lexapro. 2. Given the circumstances that his history, geriatric psychiatric inpatient stay will be appropriate and the standard care given his demographics and psychosocial history. He continues to be emotional when actually facing the circumstances that led to his overdose. Given the logistics of getting him to a geriatric facility and his overall reasonable health we will admit him to the adult unit here at [facility]. 3. 21-day hold was granted. 4. Continue 15-minute checks for safety. 5. Encourage individual, group milieu therapy. 6. Work with social work team to ensure proper follow-up given his risk medication for future suicidal behavior. We will administer an MMSE and ask PT/OT to complete a MARIO prior to discharge. Attestations NPU Medical Necessity Statement*: Inpatient psychiatric hospitalization is medically necessary and the clinically appropriate intervention at this time. We will monitor/initiate medications and make changes as indicated. Likely to stay 2-4 days. Coding Level of Care Code Acute Code for [facility] Fwd Diagnoses Suicide ideation R45.851 Major depression F32.9 Partner relational problem Z63.0
[2022-10-30 14:00] VITALS: BP 101/60; PULSE 72; RESP 17; TEMP 36.4; O2SAT 96
[2022-10-30] MEDS: hydrocortisone 1% cream 28 gm 1 APPLIC TOPICAL (19:39)
[2022-10-30 20:05] VITALS: RESP 18
[2022-10-31 05:23] VITALS: RESP 18
[2022-10-31] MEDS: isosorbide mononitrate ER 30 mg Tablet PO (07:56)
[2022-10-31] MEDS: losartan 50 mg Tablet 100 MG PO (07:56)
[2022-10-31] MEDS: carvedilol 12.5 mg Tablet PO ×2 (07:56→18:16)
[2022-10-31] MEDS: ticagrelor 90 mg Tablet PO ×2 (07:56→18:16)
[2022-10-31] MEDS: amlodipine 5 mg Tablet PO (07:56)
[2022-10-31] MEDS: montelukast sodium 10 mg Tablet PO (07:56)
[2022-10-31] MEDS: escitalopram 10 mg Tablet PO (07:56)
[2022-10-31] MEDS: sennosides-docusate Tablet 1 TAB PO (07:56)
[2022-10-31] MEDS: aspirin 81 mg EC Tablet PO (07:57)
[2022-10-31] MEDS: pantoprazole DR 40 mg Tablet PO (07:57)
[2022-10-31 14:00] VITALS: BP 107/62; PULSE 63; RESP 17; TEMP 36.3; O2SAT 97
--- NOTE | 2022-10-31 17:35 | P.NPUPN_ITS ---
Subjective NPU Subjective: Patient presented today reporting that he feels optimistic about discharge tomorrow. He did get a MARIO administered showing no concerns or issues or areas of risk for independent functioning. He reports that he is doing fine with the medication and is doing fine without the Klonopin. We dis cussed working with the treatment team tomorrow for a discharge in the late morning/afternoon. Mental Status Exam MSE Comments: This is an obese older white male looking slightly younger than his stated age in hospital gown with limited grooming but improved eye contact. No abnormal movement except mild psychomotor retardation. Cooperative with exam in no acute distress distress. Speech was slightly decreased rate and volume. Mood described as pretty good, affect somewhat brighter. Thought process organized. Thought content: Patient denied suicidal or homicidal ideation, there were no delusions reported noted, he denied any auditory or visual hallucinations. Attention and concentration seemed appropriate and memory was mostly reliable but not were formally tested. He is alert only x3. Insight fair and judgment limited and impulse control appropriate on the unit but concerns for after discharge. Vitals/I&O/Wt Last Vital Signs Temp 97.4 F L 10/31/22 21:50 Pulse 62 10/31/22 21:50 Resp 18 10/31/22 21:50 BP 118/66 10/31/22 21:50 Pulse Ox 96 10/31/22 21:50 O2 Del Method 10/30/22 14:00 O2 Flow Rate 0 10/31/22 20:00 FiO2 30 10/20/22 18:00 Weight last 48 hrs Weight 75.206 kg Physical Exam Urinary Catheter Management: Mendez: Cath Placed During This Visit: yes, but has since been removed by the nurse Reason for Continuing Indwelling Catheter: Decision to DC Catheter Urinary Catheter Date of Insertion: 10/19/22 Urinary Catheter Time of Insertion: 17:15 Date Urinary Catheter Removed: 10/22/22 Time Urinary Catheter Discontinued: 14:56 Data NPU 10/26/22 15:00 10/26/22 15:00 A&P Assessment and plan (1) Suicide ideation: (2) Major depression: (3) Partner relational problem: Plan 72 year old white single male with recent overdose with suicidal intent with past history of treatment for depression and previous suicide attempt. The patient will require acute inpatient psychiatric hospitalization at geropsychiatry unit once stabilized. 1. Continue current medication. Agree with continuing Lexapro. 2. Given the circumstances that his history, geriatric psychiatric inpatient stay will be appropriate and the standard care given his demographics and psychosocial history. He continues to be emotional when actually facing the circumstances that led to his overdose. Given the logistics of getting him to a geriatric facility and his overall reasonable health we will admit him to the adult unit here at [facility]. 3. 21-day hold was granted. 4. Continue 15-minute checks for safety. 5. Encourage individual, group milieu therapy. 6. Work with social work team to ensure proper follow-up given his risk medication for future suicidal behavior. MARIO without any clinical concerns. Attestations NPU Medical Necessity Statement*: Inpatient psychiatric hospitalization is medically necessary and the clinically appropriate intervention at this time. We will monitor/initiate medications and make changes as indicated. Likely to stay 1-3 days. Coding Level of Care Code Acute Code for Chg Fwd Diagnoses Suicide ideation R45.851 Major depression F32.9 Partner relational problem Z63.0
[2022-10-31] MEDS: diclofenac 1% Topical Gel 100 gm 1 APPLIC TOPICAL (18:26)
--- NOTE | 2022-10-31 18:26 | PC.NURSE ---
PRN VOLTAREN GEL 1 APPLICATION GIVEN TOPICAL PER PT C/O BACK PAIN
[2022-10-31] MEDS: trazodone 50 mg Tablet PO (21:49)
[2022-10-31 21:50] VITALS: BP 118/66; PULSE 62; RESP 18; TEMP 36.3; O2SAT 96
[2022-11-01 06:00] VITALS: RESP 16
[2022-11-01 08:06] VITALS: BP 123/68
[2022-11-01] MEDS: pantoprazole DR 40 mg Tablet PO (08:06)
[2022-11-01] MEDS: montelukast sodium 10 mg Tablet PO (08:06)
[2022-11-01] MEDS: losartan 50 mg Tablet 100 MG PO (08:06)
[2022-11-01] MEDS: aspirin 81 mg EC Tablet PO (08:06)
[2022-11-01] MEDS: amlodipine 5 mg Tablet PO (08:06)
[2022-11-01] MEDS: sennosides-docusate Tablet 1 TAB PO (08:06)
[2022-11-01] MEDS: ticagrelor 90 mg Tablet PO (08:06)
[2022-11-01] MEDS: carvedilol 12.5 mg Tablet PO (08:06)
[2022-11-01] MEDS: escitalopram 10 mg Tablet PO (08:07)
[2022-11-01] MEDS: isosorbide mononitrate ER 30 mg Tablet PO (08:07)
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
[2022-11-01 12:13] VITALS: BP 123/68; PULSE 61; RESP 16
--- NOTE | 2022-11-01 12:21 | DCPLANNER ---
IMM completed on 11/01/22 @ 1355. Pt was givne a copy of rights and stated he understood rights.
== END 2022-11-01 12:58 | disposition home or self-care (01) | DRG 917 ==
LOC: ER 18:54 → ICU 21:47 → MEDSURG 10-21 13:35 → NP 10-28 12:24
PROVIDERS: Internal Medicine; Admitting Provider Student in an Organized Health Care Education/Training Program; Emergency Provider Emergency Medicine; Visit Provider Psychiatry & Neurology Psychiatry
DX: T42.4X2A Poisoning by benzodiazepines, intentional self-harm, initial encounter (principal); J96.00 Acute respiratory failure, unspecified whether with hypoxia or hypercapnia; R45.851 Suicidal ideations; F32.9 Major depressive disorder, single episode, unspecified; Z63.0 Problems in relationship with spouse or partner; F41.1 Generalized anxiety disorder; I10 Essential (primary) hypertension; Z86.73 Personal history of transient ischemic attack (TIA), and cerebral infarction without residual deficits; Z79.51 Long term (current) use of inhaled steroids; Z79.82 Long term (current) use of aspirin; Z79.02 Long term (current) use of antithrombotics/antiplatelets; J41.0 Simple chronic bronchitis; E78.5 Hyperlipidemia, unspecified; I25.10 Atherosclerotic heart disease of native coronary artery without angina pectoris; Z87.891 Personal history of nicotine dependence; E66.9 Obesity, unspecified; Z68.28 Body mass index [BMI] 28.0-28.9, adult; M54.16 Radiculopathy, lumbar region; K21.9 Gastro-esophageal reflux disease without esophagitis
CPT/HCPCS: 36415; 36416; 36556; 36592; 36600; 51702; 70450; 71045; 80051; 80053; 80306; 80307; 81001; 82330; 82607; 82746; 82803; 82805; 82962; 83735; 83880; 84443; 84484; 85025; 85378; 86592; 87040; 87070; 87205; 87426; 92523; 92526; 92610; 93005; 93306; 94002; 94003; 94664; 94799; 96365; 96366; 96367; 96372; 96375; 97116; 97150; 97161; 97165; 97166; 97530; 99238; 99291; C1751; J0461; J1650; J2405; J2543; J2704; J3010; J7030; J7042